=== PATIENT | female | born 1930 | race Caucasian/White ===

== ENCOUNTER 2019-07-11 02:51 | Emergency (ER) | payer OTHER ==
--- OUTSIDE RECORDS SUMMARY | 2019-07-11 02:57 | XMS REPORT ---
:1930 [facility] [address] [place] [address] Care Team Providers Name Role Phone PARKER CALDERÓN JR Primary Care Provider Unavailable PARKER CALDERÓN JR Unavailable Unavailable EDIL BUTCHER Unavailable Unavailable Problems This patient has no known problems. Allergies, Adverse Reactions, Alerts This patient has no known allergies or adverse reactions. Medications This patient has no known medications. Encounters Start End Encounter Admission Attending Care Care Encounter Date/Time Date/Time Type Type Clinicians Facility Department ID 2017-11-10 2017-11-10 [facility] [id number] 17:29:00 17:29:00 PARKER 2017-06-17 2017-06-17 Outpatient [facility] [id number] 08:34:00 08:34:00 2017-03-01 2017-03-01 Emergency [facility] [id number] 01:18:00 01:18:00 2017-01-12 2017-01-12 Outpatient [facility] [id number] 12:21:00 12:21:00 2016-12-13 2016-12-13 Outpatient [facility] [id number] 15:00:00 15:00:00 Results Test Description Test Time Test Comments Text Results Atomic Results Result Comments Morphology 2019-01-24 07:52:28 Test Item Value Reference Range Comments RBC Morph (test code=RBC Morph) As Indicated Normal Anisocyte (test code=Anisocyte) None None Hypochromia (test code=Hypochromia) 1+ None Seen Microcyte (test code=Microcyte) None Seen None Seen Macrocyte (test code=Macrocyte) 1+ None Seen Poik (test code=Poik) None Seen None Seen Polychrom (test code=Polychrom) None Seen None Seen Acanthocyte (test code=Acanthocyte) None Seen None Seen Baso Stippling RBC (test code=Baso Stippling RBC) None Seen None Seen Plt Estimation (test code=Plt Estimation) Decreased Normal Automated [id number] 07:51:11 Test Item Value Reference Range Comments Neutro Auto (test code=Neutro Auto) 62.3 % 36.0-70.0 Lymph Auto (test code=Lymph Auto) 21.6 % 12.0-44.0 [place] Auto (test code=[place] Auto) 9.3 % 0.0-11.0 Eos, Auto (test code=Eos, Auto) 6.0 % 0.0-7.0 Basophil Auto (test code=Basophil Auto) 0.5 % 0.0-2.0 Neutro Absolute (test code=Neutro Absolute) 3.6 x10 1.6-7.4 Lymph Absolute (test code=Lymph Absolute) 1.26 x10 .50-4.60 [place] Absolute (test code=[place] Absolute) .54 x10 .00-1.20 Eos Absolute (test code=Eos Absolute) 0.35 x10 0.00-0.74 Baso Absolute (test code=Baso Absolute) 0.03 x10 0.00-0.21 IG [id number] 07:51:11 Test Item Value Reference Range Comments IG (test code=IG) 0.3 % 0.0-5.0 IG Abs (test code=IG Abs) 0 x10 Complete Blood Count with [id number] 07:51:10 Test Item Value Reference Range Comments WBC (test code=WBC) 5.8 x10 4.4-10.5 RBC (test code=RBC) 2.40 x10 3.75-5.20 Hgb (test code=Hgb) 8.6 g/dL 12.2-14.8 MCV (test code=MCV) 105.80 fL 80.00-100.00 Hct (test code=Hct) 25.4 % 36.5-44.4 MCHC (test code=MCHC) 33.90 g/dL 32.00-37.50 RDW CV (test code=RDW CV) 13.2 % 11.5-14.5 MCH (test code=MCH) 35.8 pg 27.0-32.5 Platelets (test 84.0 x10 140.0-440.0 Critical results called to code=Platelets) joshua canela at 01/24/2019 07:50:39 CDT by fs. Read back and verified? yesno info was givenconsistent with previous MPV (test code=MPV) 11.0 fL Slide Review (test Smear Auto Result created by code=Slide Review) GL_SJM_SLIDE_REV_AUTO GL_SJM_XN_RFLX GL_SJM_XN_RFLX nRBC (test code=nRBC) 0 NRBC Abs (test code=NRBC 0.00 x10 Abs) Pos Morph XN (test A code=Pos Morph XN) Pos Count XN (test A code=Pos Count XN) IPF (test code=IPF) 2 % Basic Metabolic [id number] 07:25:12 Test Item Value Reference Range Comments Sodium Level (test code=Sodium Level) 138.0 mmol/L 135.0-145.0 Potassium Level (test code=Potassium Level) 4.6 mmol/L 3.5-5.1 Chloride Level (test code=Chloride Level) 102 mmol/L 98-105 CO2 (test code=CO2) 27 mmol/L 22-29 Anion Gap (test code=Anion Gap) 9 mmol/L 7-16 BUN (test code=BUN) 34.80 mg/dL 8.00-23.00 Creatinine Level (test code=Creatinine Level) 0.80 mg/dL 0.50-0.90 BUN/Creat Ratio (test code=BUN/Creat Ratio) 44 Glucose Level (test code=Glucose Level) 87 mg/dL 70-115 Calcium Level (test code=Calcium Level) 7.8 mg/dL 8.3-10.5 Basic Metabolic [id number] 07:25:12 Test Item Value Reference Range Comments Sodium Level (test 138.0 mmol/L 135.0-145.0 code=Sodium Level) Potassium Level (test 4.6 mmol/L 3.5-5.1 code=Potassium Level) Chloride Level (test 102 mmol/L 98-105 code=Chloride Level) CO2 (test code=CO2) 27 mmol/L 22-29 Anion Gap (test 9 mmol/L 7-16 code=Anion Gap) BUN (test code=BUN) 34.80 mg/dL 8.00-23.00 Creatinine Level (test 0.80 mg/dL 0.50-0.90 code=Creatinine Level) BUN/Creat Ratio (test 44 code=BUN/Creat Ratio) Glucose Level (test 87 mg/dL 70-115 code=Glucose Level) Calcium Level (test 7.8 mg/dL 8.3-10.5 code=Calcium Level) eGFR AA (test code=eGFR >60 mL/min/1.73 m2 eGFR (estimated AA) Glomerular Filtration Rate) is an estimated value, calculated from the patient's serum creatinine using the MDRD equation. It is NOT the patient's actual GFR. The eGFR provides a more clinically useful measure of kidney disease than serum creatinine alone.This calculation takes sex and race into account, if the information is provided. If the race is not provided, and the patient is -[place] Citizen, multiply by 1.212. If sex is not provided, and the patient is female, multiply by 0.742. Results for patients <18 years of age have not been validated by the MDRD study and should be interpreted with caution. eGFR Result Interpretation:eGFR > or=60 is in the Normal RangeeGFR < 60 may mean kidney diseaseeGFR < 15 may mean kidney failure Ranges recommended by the National Kidney Foundation, http://nkdep.nih.gov Basic Metabolic [id number] 07:25:12 Test Item Value Reference Range Comments Sodium Level (test 138.0 mmol/L 135.0-145.0 code=Sodium Level) Potassium Level (test 4.6 mmol/L 3.5-5.1 code=Potassium Level) Chloride Level (test 102 mmol/L 98-105 code=Chloride Level) CO2 (test code=CO2) 27 mmol/L 22-29 Anion Gap (test 9 mmol/L 7-16 code=Anion Gap) BUN (test code=BUN) 34.80 mg/dL 8.00-23.00 Creatinine Level (test 0.80 mg/dL 0.50-0.90 code=Creatinine Level) BUN/Creat Ratio (test 44 code=BUN/Creat Ratio) Glucose Level (test 87 mg/dL 70-115 code=Glucose Level) Calcium Level (test 7.8 mg/dL 8.3-10.5 code=Calcium Level) eGFR AA (test code=eGFR >60 mL/min/1.73 m2 eGFR (estimated AA) Glomerular Filtration Rate) is an estimated value, calculated from the patient's serum creatinine using the MDRD equation. It is NOT the patient's actual GFR. The eGFR provides a more clinically useful measure of kidney disease than serum creatinine alone.This calculation takes sex and race into account, if the information is provided. If the race is not provided, and the patient is -[place] Citizen, multiply by 1.212. If sex is not provided, and the patient is female, multiply by 0.742. Results for patients <18 years of age have not been validated by the MDRD study and should be interpreted with caution. eGFR Result Interpretation:eGFR > or=60 is in the Normal RangeeGFR < 60 may mean kidney diseaseeGFR < 15 may mean kidney failure Ranges recommended by the National Kidney Foundation, http://nkdep.nih.gov eGFR Non-AA (test >60.00 mL/min/1.73 eGFR (estimated code=eGFR Non-AA) m2 Glomerular Filtration Rate) is an estimated value, calculated from the patient's serum creatinine using the MDRD equation. It is NOT the patient's actual GFR. The eGFR provides a more clinically useful measure of kidney disease than serum creatinine alone.This calculation takes sex and race into account, if the information is provided. If the race is not provided, and the patient is -[place] Citizen, multiply by 1.212. If sex is not provided, and the patient is female, multiply by 0.742. Results for patients <18 years of age have not been validated by the MDRD study and should be interpreted with caution. eGFR Result Interpretation:eGFR > or=60 is in the Normal RangeeGFR < 60 may mean kidney diseaseeGFR < 15 may mean kidney failure Ranges recommended by the National Kidney Foundation, http://nkdep.nih.gov [id number] 09:15:14 Test Item Value Reference Range Comments RBC Morph (test code=RBC Morph) As Indicated Normal Anisocyte (test code=Anisocyte) None None Hypochromia (test code=Hypochromia) 1+ None Seen Microcyte (test code=Microcyte) None Seen None Seen Macrocyte (test code=Macrocyte) None Seen None Seen Poik (test code=Poik) None Seen None Seen Polychrom (test code=Polychrom) None Seen None Seen Acanthocyte (test code=Acanthocyte) None Seen None Seen Baso Stippling RBC (test code=Baso Stippling None Seen None Seen RBC) Plt Estimation (test code=Plt Estimation) Decreased Normal Basic Metabolic [id number] 09:03:30 Test Item Value Reference Range Comments Sodium Level (test code=Sodium Level) 139.0 mmol/L 135.0-145.0 Potassium Level (test code=Potassium Level) 4.8 mmol/L 3.5-5.1 Chloride Level (test code=Chloride Level) 103 mmol/L 98-105 CO2 (test code=CO2) 27 mmol/L 22-29 Anion Gap (test code=Anion Gap) 9 mmol/L 7-16 BUN (test code=BUN) 37.30 mg/dL 8.00-23.00 Creatinine Level (test code=Creatinine Level) 0.90 mg/dL 0.50-0.90 BUN/Creat Ratio (test code=BUN/Creat Ratio) 41 Glucose Level (test code=Glucose Level) 120 mg/dL 70-115 Calcium Level (test code=Calcium Level) 8.0 mg/dL 8.3-10.5 Basic Metabolic [id number] 09:03:30 Test Item Value Reference Range Comments Sodium Level (test 139.0 mmol/L 135.0-145.0 code=Sodium Level) Potassium Level (test 4.8 mmol/L 3.5-5.1 code=Potassium Level) Chloride Level (test 103 mmol/L 98-105 code=Chloride Level) CO2 (test code=CO2) 27 mmol/L 22-29 Anion Gap (test 9 mmol/L 7-16 code=Anion Gap) BUN (test code=BUN) 37.30 mg/dL 8.00-23.00 Creatinine Level (test 0.90 mg/dL 0.50-0.90 code=Creatinine Level) BUN/Creat Ratio (test 41 code=BUN/Creat Ratio) Glucose Level (test 120 mg/dL 70-115 code=Glucose Level) Calcium Level (test 8.0 mg/dL 8.3-10.5 code=Calcium Level) eGFR AA (test code=eGFR >60 mL/min/1.73 m2 eGFR (estimated AA) Glomerular Filtration Rate) is an estimated value, calculated from the patient's serum creatinine using the MDRD equation. It is NOT the patient's actual GFR. The eGFR provides a more clinically useful measure of kidney disease than serum creatinine alone.This calculation takes sex and race into account, if the information is provided. If the race is not provided, and the patient is -[place] Citizen, multiply by 1.212. If sex is not provided, and the patient is female, multiply by 0.742. Results for patients <18 years of age have not been validated by the MDRD study and should be interpreted with caution. eGFR Result Interpretation:eGFR > or=60 is in the Normal RangeeGFR < 60 may mean kidney diseaseeGFR < 15 may mean kidney failure Ranges recommended by the National Kidney Foundation, http://nkdep.nih.gov eGFR Non-AA (test 58.95 mL/min/1.73 eGFR (estimated code=eGFR Non-AA) m2 Glomerular Filtration Rate) is an estimated value, calculated from the patient's serum creatinine using the MDRD equation. It is NOT the patient's actual GFR. The eGFR provides a more clinically useful measure of kidney disease than serum creatinine alone.This calculation takes sex and race into account, if the information is provided. If the race is not provided, and the patient is -[place] Citizen, multiply by 1.212. If sex is not provided, and the patient is female, multiply by 0.742. Results for patients <18 years of age have not been validated by the MDRD study and should be interpreted with caution. eGFR Result Interpretation:eGFR > or=60 is in the Normal RangeeGFR < 60 may mean kidney diseaseeGFR < 15 may mean kidney failure Ranges recommended by the National Kidney Foundation, http://nkdep.nih.gov Basic Metabolic [id number] 09:03:30 Test Item Value Reference Range Comments Sodium Level (test 139.0 mmol/L 135.0-145.0 code=Sodium Level) Potassium Level (test 4.8 mmol/L 3.5-5.1 code=Potassium Level) Chloride Level (test 103 mmol/L 98-105 code=Chloride Level) CO2 (test code=CO2) 27 mmol/L 22-29 Anion Gap (test 9 mmol/L 7-16 code=Anion Gap) BUN (test code=BUN) 37.30 mg/dL 8.00-23.00 Creatinine Level (test 0.90 mg/dL 0.50-0.90 code=Creatinine Level) BUN/Creat Ratio (test 41 code=BUN/Creat Ratio) Glucose Level (test 120 mg/dL 70-115 code=Glucose Level) Calcium Level (test 8.0 mg/dL 8.3-10.5 code=Calcium Level) eGFR AA (test code=eGFR >60 mL/min/1.73 m2 eGFR (estimated AA) Glomerular Filtration Rate) is an estimated value, calculated from the patient's serum creatinine using the MDRD equation. It is NOT the patient's actual GFR. The eGFR provides a more clinically useful measure of kidney disease than serum creatinine alone.This calculation takes sex and race into account, if the information is provided. If the race is not provided, and the patient is -[place] Citizen, multiply by 1.212. If sex is not provided, and the patient is female, multiply by 0.742. Results for patients <18 years of age have not been validated by the MDRD study and should be interpreted with caution. eGFR Result Interpretation:eGFR > or=60 is in the Normal RangeeGFR < 60 may mean kidney diseaseeGFR < 15 may mean kidney failure Ranges recommended by the National Kidney Foundation, http://nkdep.nih.gov eGFR Non-AA (test 58.95 mL/min/1.73 eGFR (estimated code=eGFR Non-AA) m2 Glomerular Filtration Rate) is an estimated value, calculated from the patient's serum creatinine using the MDRD equation. It is NOT the patient's actual GFR. The eGFR provides a more clinically useful measure of kidney disease than serum creatinine alone.This calculation takes sex and race into account, if the information is provided. If the race is not provided, and the patient is -[place] Citizen, multiply by 1.212. If sex is not provided, and the patient is female, multiply by 0.742. Results for patients <18 years of age have not been validated by the MDRD study and should be interpreted with caution. eGFR Result Interpretation:eGFR > or=60 is in the Normal RangeeGFR < 60 may mean kidney diseaseeGFR < 15 may mean kidney failure Ranges recommended by the National Kidney Foundation, http://nkdep.nih.gov Complete Blood Count with [id number] 09:02:03 Test Item Value Reference Range Comments WBC (test code=WBC) 6.8 x10 4.4-10.5 RBC (test code=RBC) 2.39 x10 3.75-5.20 Hgb (test code=Hgb) 8.6 g/dL 12.2-14.8 MCV (test code=MCV) 105.90 fL 80.00-100.00 Hct (test code=Hct) 25.3 % 36.5-44.4 MCHC (test code=MCHC) 34.00 g/dL 32.00-37.50 RDW CV (test code=RDW CV) 13.0 % 11.5-14.5 MCH (test code=MCH) 36.0 pg 27.0-32.5 Platelets (test 93.0 x10 140.0-440.0 Critical results called to code=Platelets) harjitrn at 01/23/2019 09:01:38 CDT by fs. Read back and verified? yesno info was given MPV (test code=MPV) 10.6 fL Slide Review (test code=Slide Smear Auto Result created by Review) GL_SJM_SLIDE_REV_AUTO GL_SJM_XN_RFLX GL_SJM_XN_RFLX nRBC (test code=nRBC) 0 NRBC Abs (test code=NRBC Abs) 0.00 x10 Pos Morph XN (test code=Pos A Morph XN) Pos Count XN (test code=Pos A Count XN) IPF (test code=IPF) 2 % Automated [id number] 09:02:03 Test Item Value Reference Range Comments Neutro Auto (test code=Neutro Auto) 71.4 % 36.0-70.0 Lymph Auto (test code=Lymph Auto) 16.9 % 12.0-44.0 [place] Auto (test code=[place] Auto) 6.3 % 0.0-11.0 Eos, Auto (test code=Eos, Auto) 4.6 % 0.0-7.0 Basophil Auto (test code=Basophil Auto) 0.4 % 0.0-2.0 Neutro Absolute (test code=Neutro Absolute) 4.9 x10 1.6-7.4 Lymph Absolute (test code=Lymph Absolute) 1.15 x10 .50-4.60 [place] Absolute (test code=[place] Absolute) .43 x10 .00-1.20 Eos Absolute (test code=Eos Absolute) 0.31 x10 0.00-0.74 Baso Absolute (test code=Baso Absolute) 0.03 x10 0.00-0.21 IG [id number] 09:02:03 Test Item Value Reference Range Comments IG (test code=IG) 0.4 % 0.0-5.0 IG Abs (test code=IG Abs) 0 x10 Urine [id number] 08:07:13 C Urine Added by GL_SJM_UA_CUL_INDNo growth at 24 hours. No growth at 48 hours.[id number] 07:49:13 Test Item Value Reference Range Comments RBC Morph (test code=RBC Morph) As Indicated Normal Anisocyte (test code=Anisocyte) None None Hypochromia (test code=Hypochromia) 1+ None Seen Microcyte (test code=Microcyte) None Seen None Seen Macrocyte (test code=Macrocyte) None Seen None Seen Poik (test code=Poik) None Seen None Seen Polychrom (test code=Polychrom) None Seen None Seen Acanthocyte (test code=Acanthocyte) None Seen None Seen Baso Stippling RBC (test code=Baso Stippling None Seen None Seen RBC) Plt Estimation (test code=Plt Estimation) Normal Normal Automated [id number] 07:10:40 Test Item Value Reference Range Comments Neutro Auto (test code=Neutro Auto) 66.0 % 36.0-70.0 Lymph Auto (test code=Lymph Auto) 20.1 % 12.0-44.0 [place] Auto (test code=[place] Auto) 8.5 % 0.0-11.0 Eos, Auto (test code=Eos, Auto) 4.6 % 0.0-7.0 Basophil Auto (test code=Basophil Auto) 0.5 % 0.0-2.0 Neutro Absolute (test code=Neutro Absolute) 5.7 x10 1.6-7.4 Lymph Absolute (test code=Lymph Absolute) 1.74 x10 .50-4.60 [place] Absolute (test code=[place] Absolute) .74 x10 .00-1.20 Eos Absolute (test code=Eos Absolute) 0.40 x10 0.00-0.74 Baso Absolute (test code=Baso Absolute) 0.04 x10 0.00-0.21 IG [id number] 07:10:40 Test Item Value Reference Range Comments IG (test code=IG) 0.3 % 0.0-5.0 IG Abs (test code=IG Abs) 0 x10 Complete Blood Count with [id number] 07:10:39 Test Item Value Reference Range Comments WBC (test code=WBC) 8.7 x10 4.4-10.5 RBC (test code=RBC) 2.57 x10 3.75-5.20 Hgb (test code=Hgb) 9.0 g/dL 12.2-14.8 MCV (test code=MCV) 105.10 fL 80.00-100.00 Hct (test code=Hct) 27.0 % 36.5-44.4 MCHC (test code=MCHC) 33.30 g/dL 32.00-37.50 RDW CV (test code=RDW CV) 13.3 % 11.5-14.5 MCH (test code=MCH) 35.0 pg 27.0-32.5 Platelets (test 112.0 x10 140.0-440.0 code=Platelets) MPV (test code=MPV) 10.3 fL Slide Review (test code=Slide Smear Auto Result created by Review) GL_SJM_SLIDE_REV_AUTO GL_SJM_XN_RFLX nRBC (test code=nRBC) 0 NRBC Abs (test code=NRBC Abs) 0.00 x10 Pos Morph XN (test code=Pos A Morph XN) IPF (test code=IPF) 0 % Basic Metabolic [id number] 07:00:58 Test Item Value Reference Range Comments Sodium Level (test code=Sodium Level) 137.0 mmol/L 135.0-145.0 Potassium Level (test code=Potassium Level) 4.1 mmol/L 3.5-5.1 Chloride Level (test code=Chloride Level) 102 mmol/L 98-105 CO2 (test code=CO2) 26 mmol/L 22-29 Anion Gap (test code=Anion Gap) 9 mmol/L 7-16 BUN (test code=BUN) 36.00 mg/dL 8.00-23.00 Creatinine Level (test code=Creatinine Level) 0.80 mg/dL 0.50-0.90 BUN/Creat Ratio (test code=BUN/Creat Ratio) 45 Glucose Level (test code=Glucose Level) 93 mg/dL 70-115 Calcium Level (test code=Calcium Level) 8.0 mg/dL 8.3-10.5 Basic Metabolic [id number] 07:00:58 Test Item Value Reference Range Comments Sodium Level (test 137.0 mmol/L 135.0-145.0 code=Sodium Level) Potassium Level (test 4.1 mmol/L 3.5-5.1 code=Potassium Level) Chloride Level (test 102 mmol/L 98-105 code=Chloride Level) CO2 (test code=CO2) 26 mmol/L 22-29 Anion Gap (test 9 mmol/L 7-16 code=Anion Gap) BUN (test code=BUN) 36.00 mg/dL 8.00-23.00 Creatinine Level (test 0.80 mg/dL 0.50-0.90 code=Creatinine Level) BUN/Creat Ratio (test 45 code=BUN/Creat Ratio) Glucose Level (test 93 mg/dL 70-115 code=Glucose Level) Calcium Level (test 8.0 mg/dL 8.3-10.5 code=Calcium Level) eGFR AA (test code=eGFR >60 mL/min/1.73 m2 eGFR (estimated AA) Glomerular Filtration Rate) is an estimated value, calculated from the patient's serum creatinine using the MDRD equation. It is NOT the patient's actual GFR. The eGFR provides a more clinically useful measure of kidney disease than serum creatinine alone.This calculation takes sex and race into account, if the information is provided. If the race is not provided, and the patient is -[place] Citizen, multiply by 1.212. If sex is not provided, and the patient is female, multiply by 0.742. Results for patients <18 years of age have not been validated by the MDRD study and should be interpreted with caution. eGFR Result Interpretation:eGFR > or=60 is in the Normal RangeeGFR < 60 may mean kidney diseaseeGFR < 15 may mean kidney failure Ranges recommended by the National Kidney Foundation, http://nkdep.nih.gov Basic Metabolic [id number] 07:00:58 Test Item Value Reference Range Comments Sodium Level (test 137.0 mmol/L 135.0-145.0 code=Sodium Level) Potassium Level (test 4.1 mmol/L 3.5-5.1 code=Potassium Level) Chloride Level (test 102 mmol/L 98-105 code=Chloride Level) CO2 (test code=CO2) 26 mmol/L 22-29 Anion Gap (test 9 mmol/L 7-16 code=Anion Gap) BUN (test code=BUN) 36.00 mg/dL 8.00-23.00 Creatinine Level (test 0.80 mg/dL 0.50-0.90 code=Creatinine Level) BUN/Creat Ratio (test 45 code=BUN/Creat Ratio) Glucose Level (test 93 mg/dL 70-115 code=Glucose Level) Calcium Level (test 8.0 mg/dL 8.3-10.5 code=Calcium Level) eGFR AA (test code=eGFR >60 mL/min/1.73 m2 eGFR (estimated AA) Glomerular Filtration Rate) is an estimated value, calculated from the patient's serum creatinine using the MDRD equation. It is NOT the patient's actual GFR. The eGFR provides a more clinically useful measure of kidney disease than serum creatinine alone.This calculation takes sex and race into account, if the information is provided. If the race is not provided, and the patient is -[place] Citizen, multiply by 1.212. If sex is not provided, and the patient is female, multiply by 0.742. Results for patients <18 years of age have not been validated by the MDRD study and should be interpreted with caution. eGFR Result Interpretation:eGFR > or=60 is in the Normal RangeeGFR < 60 may mean kidney diseaseeGFR < 15 may mean kidney failure Ranges recommended by the National Kidney Foundation, http://nkdep.nih.gov eGFR Non-AA (test >60.00 mL/min/1.73 eGFR (estimated code=eGFR Non-AA) m2 Glomerular Filtration Rate) is an estimated value, calculated from the patient's serum creatinine using the MDRD equation. It is NOT the patient's actual GFR. The eGFR provides a more clinically useful measure of kidney disease than serum creatinine alone.This calculation takes sex and race into account, if the information is provided. If the race is not provided, and the patient is -[place] Citizen, multiply by 1.212. If sex is not provided, and the patient is female, multiply by 0.742. Results for patients <18 years of age have not been validated by the MDRD study and should be interpreted with caution. eGFR Result Interpretation:eGFR > or=60 is in the Normal RangeeGFR < 60 may mean kidney diseaseeGFR < 15 may mean kidney failure Ranges recommended by the National Kidney Foundation, http://nkdep.nih.gov Urinalysis [id number] 01:08:58 Test Item Value Reference Range Comments UA WBC (test code=UA WBC) 11-19 0-5 UA RBC (test code=UA RBC) 30-50 0-5 UA Bacteria (test code=UA Bacteria) Moderate UA Squam Epithelial (test code=UA Squam Epithelial) 6-10 Urinalysis with Culture, if [id number] 00:50:50 Test Item Value Reference Range Comments UA Color (test code=UA Color) RED Yellow UA Appear (test code=UA CLDY Clear Appear) UA pH (test code=UA pH) 6.5 UA Spec Grav (test code=UA 1.016 1.001-1.035 Spec Grav) UA Glucose (test code=UA NEG Negative Glucose) UA Bili (test code=UA Bili) NEG Negative UA Ketones (test code=UA 15 mg/dL Negative Ketones) UA Blood (test code=UA Blood) 250 cells/mcL Negative UA Protein (test code=UA 500 mg/dL Negative Protein) UA Urobilinogen (test code=UA 0.2 mg/dL Urobilinogen) UA Nitrite (test code=UA NEG Negative Nitrite) UA Leuk Est (test code=UA Leuk 100 cells/mcL Negative Est) UA Micro Ind? (test code=UA Indicated Not Indicated Result created by rule Micro Ind?) GL_SJM_UA_MICRO_IND CT Brain/Head w/o [id number] 11:16:18Patient: ELISABETH CONDON Date/Time01/18/2019 10:55 CDTReason for ExamAtrophy, brainReportCT head without contrast 01/18/2019 11:14 AMCLINICAL HISTORY: Brain atrophyTECHNIQUE: Axial noncontrast CT images through the head were obtained. This examination was performed according to our departmental dose optimization program, which includes automatedexposure control , adjustment of the mA and/or kV according to patient size, and/or use of iterative reconstruction technique.COMPARISON: 03/01/2017LOCATION: [id number]: There is no hemorrhage, extra-axial collection, mass, hydrocephalus, or midline shift. There is moderately advanced microvascular ischemia in the supratentorial white matter, deep polanco nuclei, and patsy. There is atherosclerotic calcification of the intracranial arterial vasculature. There is generalized parenchymal volume loss.The visualized paranasal sinuses and mastoid air cells are well aerated. The skull is intact.IMPRESSION:No intracranial hemorrhage or mass effect.Chronic appearing microvascular and involutional changes.If concern for acute pathology persists, further evaluation with MRI is recommended. Final Dictated by: MD Patton Timothy JDictated DT/TM: 01/18/2019 11:14 amSigned by: MD Patton Timothy JSigned (Electronic Signature): 01/18/2019 11:16 amXR Abdomen KUB 1 [id number] 10:11:59Patient: ELISABETH CONDON Date/Time01/18/2019 10:00 CDTReason for ExamAbdominal distentionReportAbdomen one view supine 01/18/2019 10:11 AMCLINICAL INDICATION: DistentionCOMPARISON: None availableLOCATION: [id number]:There is no radiographic evidence of bowel obstruction. There is no remarkable ileus. 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 Final Dictated by: MD Patton Timothy JDictated DT/TM: 10:11 amSigned by: MD Patton Timothy JSigned (Electronic Signature): 01/18/2019 10:11 amBasic Metabolic [id number] 09:01:10 Test Item Value Reference Range Comments Sodium Level (test code=Sodium Level) 136.0 mmol/L 135.0-145.0 Potassium Level (test code=Potassium Level) 3.9 mmol/L 3.5-5.1 Chloride Level (test code=Chloride Level) 103 mmol/L 98-105 CO2 (test code=CO2) 23 mmol/L 22-29 Anion Gap (test code=Anion Gap) 10 mmol/L 7-16 BUN (test code=BUN) 36.10 mg/dL 8.00-23.00 Creatinine Level (test code=Creatinine Level) 0.90 mg/dL 0.50-0.90 BUN/Creat Ratio (test code=BUN/Creat Ratio) 40 Glucose Level (test code=Glucose Level) 105 mg/dL 70-115 Calcium Level (test code=Calcium Level) 8.1 mg/dL 8.3-10.5 Basic Metabolic [id number] 09:01:10 Test Item Value Reference Range Comments Sodium Level (test 136.0 mmol/L 135.0-145.0 code=Sodium Level) Potassium Level (test 3.9 mmol/L 3.5-5.1 code=Potassium Level) Chloride Level (test 103 mmol/L 98-105 code=Chloride Level) CO2 (test code=CO2) 23 mmol/L 22-29 Anion Gap (test 10 mmol/L 7-16 code=Anion Gap) BUN (test code=BUN) 36.10 mg/dL 8.00-23.00 Creatinine Level (test 0.90 mg/dL 0.50-0.90 code=Creatinine Level) BUN/Creat Ratio (test 40 code=BUN/Creat Ratio) Glucose Level (test 105 mg/dL 70-115 code=Glucose Level) Calcium Level (test 8.1 mg/dL 8.3-10.5 code=Calcium Level) eGFR AA (test code=eGFR >60 mL/min/1.73 m2 eGFR (estimated AA) Glomerular Filtration Rate) is an estimated value, calculated from the patient's serum creatinine using the MDRD equation. It is NOT the patient's actual GFR. The eGFR provides a more clinically useful measure of kidney disease than serum creatinine alone.This calculation takes sex and race into account, if the information is provided. If the race is not provided, and the patient is -[place] Citizen, multiply by 1.212. If sex is not provided, and the patient is female, multiply by 0.742. Results for patients <18 years of age have not been validated by the MDRD study and should be interpreted with caution. eGFR Result Interpretation:eGFR > or=60 is in the Normal RangeeGFR < 60 may mean kidney diseaseeGFR < 15 may mean kidney failure Ranges recommended by the National Kidney Foundation, http://nkdep.nih.gov Basic Metabolic [id number] 09:01:10 Test Item Value Reference Range Comments Sodium Level (test 136.0 mmol/L 135.0-145.0 code=Sodium Level) Potassium Level (test 3.9 mmol/L 3.5-5.1 code=Potassium Level) Chloride Level (test 103 mmol/L 98-105 code=Chloride Level) CO2 (test code=CO2) 23 mmol/L 22-29 Anion Gap (test 10 mmol/L 7-16 code=Anion Gap) BUN (test code=BUN) 36.10 mg/dL 8.00-23.00 Creatinine Level (test 0.90 mg/dL 0.50-0.90 code=Creatinine Level) BUN/Creat Ratio (test 40 code=BUN/Creat Ratio) Glucose Level (test 105 mg/dL 70-115 code=Glucose Level) Calcium Level (test 8.1 mg/dL 8.3-10.5 code=Calcium Level) eGFR AA (test code=eGFR >60 mL/min/1.73 m2 eGFR (estimated AA) Glomerular Filtration Rate) is an estimated value, calculated from the patient's serum creatinine using the MDRD equation. It is NOT the patient's actual GFR. The eGFR provides a more clinically useful measure of kidney disease than serum creatinine alone.This calculation takes sex and race into account, if the information is provided. If the race is not provided, and the patient is -[place] Citizen, multiply by 1.212. If sex is not provided, and the patient is female, multiply by 0.742. Results for patients <18 years of age have not been validated by the MDRD study and should be interpreted with caution. eGFR Result Interpretation:eGFR > or=60 is in the Normal RangeeGFR < 60 may mean kidney diseaseeGFR < 15 may mean kidney failure Ranges recommended by the National Kidney Foundation, http://nkdep.nih.gov eGFR Non-AA (test 58.95 mL/min/1.73 eGFR (estimated code=eGFR Non-AA) m2 Glomerular Filtration Rate) is an estimated value, calculated from the patient's serum creatinine using the MDRD equation. It is NOT the patient's actual GFR. The eGFR provides a more clinically useful measure of kidney disease than serum creatinine alone.This calculation takes sex and race into account, if the information is provided. If the race is not provided, and the patient is -[place] Citizen, multiply by 1.212. If sex is not provided, and the patient is female, multiply by 0.742. Results for patients <18 years of age have not been validated by the MDRD study and should be interpreted with caution. eGFR Result Interpretation:eGFR > or=60 is in the Normal RangeeGFR < 60 may mean kidney diseaseeGFR < 15 may mean kidney failure Ranges recommended by the National Kidney Foundation, http://nkdep.nih.gov Complete Blood Count with [id number] 08:54:54 Test Item Value Reference Range Comments WBC (test code=WBC) 8.9 x10 4.4-10.5 RBC (test code=RBC) 2.83 x10 3.75-5.20 Hgb (test code=Hgb) 10.1 g/dL 12.2-14.8 MCV (test code=MCV) 103.20 fL 80.00-100.00 Hct (test code=Hct) 29.2 % 36.5-44.4 MCHC (test code=MCHC) 34.60 g/dL 32.00-37.50 MCH (test code=MCH) 35.7 pg 27.0-32.5 RDW CV (test code=RDW CV) 13.3 % 11.5-14.5 Platelets (test 120.0 x10 140.0-440.0 code=Platelets) MPV (test code=MPV) 10.2 fL Slide Review (test code=Slide Auto Auto Result created by Review) GL_SJM_SLIDE_REV_AUTO nRBC (test code=nRBC) 0 NRBC Abs (test code=NRBC Abs) 0.00 x10 IPF (test code=IPF) 0 % Automated [id number] 08:54:54 Test Item Value Reference Range Comments Neutro Auto (test code=Neutro Auto) 76.1 % 36.0-70.0 Lymph Auto (test code=Lymph Auto) 14.4 % 12.0-44.0 [place] Auto (test code=[place] Auto) 6.3 % 0.0-11.0 Eos, Auto (test code=Eos, Auto) 2.7 % 0.0-7.0 Basophil Auto (test code=Basophil Auto) 0.2 % 0.0-2.0 Neutro Absolute (test code=Neutro Absolute) 6.8 x10 1.6-7.4 Lymph Absolute (test code=Lymph Absolute) 1.28 x10 .50-4.60 [place] Absolute (test code=[place] Absolute) .56 x10 .00-1.20 Eos Absolute (test code=Eos Absolute) 0.24 x10 0.00-0.74 Baso Absolute (test code=Baso Absolute) 0.02 x10 0.00-0.21 IG [id number] 08:54:54 Test Item Value Reference Range Comments IG (test code=IG) 0.3 % 0.0-5.0 IG Abs (test code=IG Abs) 0 x10 Basic Metabolic [id number] 11:07:49 Test Item Value Reference Range Comments Sodium Level (test code=Sodium Level) 132.0 mmol/L 135.0-145.0 Potassium Level (test code=Potassium Level) 3.7 mmol/L 3.5-5.1 Chloride Level (test code=Chloride Level) 98 mmol/L 98-105 CO2 (test code=CO2) 24 mmol/L 22-29 Anion Gap (test code=Anion Gap) 10 mmol/L 7-16 BUN (test code=BUN) 34.90 mg/dL 8.00-23.00 Creatinine Level (test code=Creatinine Level) 1.00 mg/dL 0.50-0.90 BUN/Creat Ratio (test code=BUN/Creat Ratio) 35 Glucose Level (test code=Glucose Level) 118 mg/dL 70-115 Calcium Level (test code=Calcium Level) 7.6 mg/dL 8.3-10.5 Basic Metabolic [id number] 11:07:49 Test Item Value Reference Range Comments Sodium Level (test 132.0 mmol/L 135.0-145.0 code=Sodium Level) Potassium Level (test 3.7 mmol/L 3.5-5.1 code=Potassium Level) Chloride Level (test 98 mmol/L 98-105 code=Chloride Level) CO2 (test code=CO2) 24 mmol/L 22-29 Anion Gap (test 10 mmol/L 7-16 code=Anion Gap) BUN (test code=BUN) 34.90 mg/dL 8.00-23.00 Creatinine Level (test 1.00 mg/dL 0.50-0.90 code=Creatinine Level) BUN/Creat Ratio (test 35 code=BUN/Creat Ratio) Glucose Level (test 118 mg/dL 70-115 code=Glucose Level) Calcium Level (test 7.6 mg/dL 8.3-10.5 code=Calcium Level) eGFR AA (test code=eGFR >60 mL/min/1.73 m2 eGFR (estimated AA) Glomerular Filtration Rate) is an estimated value, calculated from the patient's serum creatinine using the MDRD equation. It is NOT the patient's actual GFR. The eGFR provides a more clinically useful measure of kidney disease than serum creatinine alone.This calculation takes sex and race into account, if the information is provided. If the race is not provided, and the patient is -[place] Citizen, multiply by 1.212. If sex is not provided, and the patient is female, multiply by 0.742. Results for patients <18 years of age have not been validated by the MDRD study and should be interpreted with caution. eGFR Result Interpretation:eGFR > or=60 is in the Normal RangeeGFR < 60 may mean kidney diseaseeGFR < 15 may mean kidney failure Ranges recommended by the National Kidney Foundation, http://nkdep.nih.gov Basic Metabolic [id number] 11:07:49 Test Item Value Reference Range Comments Sodium Level (test 132.0 mmol/L 135.0-145.0 code=Sodium Level) Potassium Level (test 3.7 mmol/L 3.5-5.1 code=Potassium Level) Chloride Level (test 98 mmol/L 98-105 code=Chloride Level) CO2 (test code=CO2) 24 mmol/L 22-29 Anion Gap (test 10 mmol/L 7-16 code=Anion Gap) BUN (test code=BUN) 34.90 mg/dL 8.00-23.00 Creatinine Level (test 1.00 mg/dL 0.50-0.90 code=Creatinine Level) BUN/Creat Ratio (test 35 code=BUN/Creat Ratio) Glucose Level (test 118 mg/dL 70-115 code=Glucose Level) Calcium Level (test 7.6 mg/dL 8.3-10.5 code=Calcium Level) eGFR AA (test code=eGFR >60 mL/min/1.73 m2 eGFR (estimated AA) Glomerular Filtration Rate) is an estimated value, calculated from the patient's serum creatinine using the MDRD equation. It is NOT the patient's actual GFR. The eGFR provides a more clinically useful measure of kidney disease than serum creatinine alone.This calculation takes sex and race into account, if the information is provided. If the race is not provided, and the patient is -[place] Citizen, multiply by 1.212. If sex is not provided, and the patient is female, multiply by 0.742. Results for patients <18 years of age have not been validated by the MDRD study and should be interpreted with caution. eGFR Result Interpretation:eGFR > or=60 is in the Normal RangeeGFR < 60 may mean kidney diseaseeGFR < 15 may mean kidney failure Ranges recommended by the National Kidney Foundation, http://nkdep.nih.gov eGFR Non-AA (test 52.21 mL/min/1.73 eGFR (estimated code=eGFR Non-AA) m2 Glomerular Filtration Rate) is an estimated value, calculated from the patient's serum creatinine using the MDRD equation. It is NOT the patient's actual GFR. The eGFR provides a more clinically useful measure of kidney disease than serum creatinine alone.This calculation takes sex and race into account, if the information is provided. If the race is not provided, and the patient is -[place] Citizen, multiply by 1.212. If sex is not provided, and the patient is female, multiply by 0.742. Results for patients <18 years of age have not been validated by the MDRD study and should be interpreted with caution. eGFR Result Interpretation:eGFR > or=60 is in the Normal RangeeGFR < 60 may mean kidney diseaseeGFR < 15 may mean kidney failure Ranges recommended by the National Kidney Foundation, http://nkdep.nih.gov Basic Metabolic [id number] 11:35:00 Test Item Value Reference Range Comments Sodium Level (test code=Sodium Level) 130.0 mmol/L 135.0-145.0 Potassium Level (test code=Potassium Level) 4.0 mmol/L 3.5-5.1 Chloride Level (test code=Chloride Level) 94 mmol/L 98-105 CO2 (test code=CO2) 22 mmol/L 22-29 Anion Gap (test code=Anion Gap) 14 mmol/L 7-16 BUN (test code=BUN) 37.20 mg/dL 8.00-23.00 Creatinine Level (test code=Creatinine Level) 1.00 mg/dL 0.50-0.90 BUN/Creat Ratio (test code=BUN/Creat Ratio) 37 Glucose Level (test code=Glucose Level) 103 mg/dL 70-115 Calcium Level (test code=Calcium Level) 8.1 mg/dL 8.3-10.5 Basic Metabolic [id number] 11:35:00 Test Item Value Reference Range Comments Sodium Level (test 130.0 mmol/L 135.0-145.0 code=Sodium Level) Potassium Level (test 4.0 mmol/L 3.5-5.1 code=Potassium Level) Chloride Level (test 94 mmol/L 98-105 code=Chloride Level) CO2 (test code=CO2) 22 mmol/L 22-29 Anion Gap (test 14 mmol/L -16 code=Anion Gap) BUN (test code=BUN) 37.20 mg/dL 8.00-23.00 Creatinine Level (test 1.00 mg/dL 0.50-0.90 code=Creatinine Level) BUN/Creat Ratio (test 37 code=BUN/Creat Ratio) Glucose Level (test 103 mg/dL 70-115 code=Glucose Level) Calcium Level (test 8.1 mg/dL 8.3-10.5 code=Calcium Level) eGFR AA (test code=eGFR >60 mL/min/1.73 m2 eGFR (estimated AA) Glomerular Filtration Rate) is an estimated value, calculated from the patient's serum creatinine using the MDRD equation. It is NOT the patient's actual GFR. The eGFR provides a more clinically useful measure of kidney disease than serum creatinine alone.This calculation takes sex and race into account, if the information is provided. If the race is not provided, and the patient is -[place] Citizen, multiply by 1.212. If sex is not provided, and the patient is female, multiply by 0.742. Results for patients <18 years of age have not been validated by the MDRD study and should be interpreted with caution. eGFR Result Interpretation:eGFR > or=60 is in the Normal RangeeGFR < 60 may mean kidney diseaseeGFR < 15 may mean kidney failure Ranges recommended by the National Kidney Foundation, http://nkdep.nih.gov Basic Metabolic [id number] 11:35:00 Test Item Value Reference Range Comments Sodium Level (test 130.0 mmol/L 135.0-145.0 code=Sodium Level) Potassium Level (test 4.0 mmol/L 3.5-5.1 code=Potassium Level) Chloride Level (test 94 mmol/L 98-105 code=Chloride Level) CO2 (test code=CO2) 22 mmol/L 22-29 Anion Gap (test 14 mmol/L 7-16 code=Anion Gap) BUN (test code=BUN) 37.20 mg/dL 8.00-23.00 Creatinine Level (test 1.00 mg/dL 0.50-0.90 code=Creatinine Level) BUN/Creat Ratio (test 37 code=BUN/Creat Ratio) Glucose Level (test 103 mg/dL 70-115 code=Glucose Level) Calcium Level (test 8.1 mg/dL 8.3-10.5 code=Calcium Level) eGFR AA (test code=eGFR >60 mL/min/1.73 m2 eGFR (estimated AA) Glomerular Filtration Rate) is an estimated value, calculated from the patient's serum creatinine using the MDRD equation. It is NOT the patient's actual GFR. The eGFR provides a more clinically useful measure of kidney disease than serum creatinine alone.This calculation takes sex and race into account, if the information is provided. If the race is not provided, and the patient is -[place] Citizen, multiply by 1.212. If sex is not provided, and the patient is female, multiply by 0.742. Results for patients <18 years of age have not been validated by the MDRD study and should be interpreted with caution. eGFR Result Interpretation:eGFR > or=60 is in the Normal RangeeGFR < 60 may mean kidney diseaseeGFR < 15 may mean kidney failure Ranges recommended by the National Kidney Foundation, http://nkdep.nih.gov eGFR Non-AA (test 52.21 mL/min/1.73 eGFR (estimated code=eGFR Non-AA) m2 Glomerular Filtration Rate) is an estimated value, calculated from the patient's serum creatinine using the MDRD equation. It is NOT the patient's actual GFR. The eGFR provides a more clinically useful measure of kidney disease than serum creatinine alone.This calculation takes sex and race into account, if the information is provided. If the race is not provided, and the patient is -[place] Citizen, multiply by 1.212. If sex is not provided, and the patient is female, multiply by 0.742. Results for patients <18 years of age have not been validated by the MDRD study and should be interpreted with caution. eGFR Result Interpretation:eGFR > or=60 is in the Normal RangeeGFR < 60 may mean kidney diseaseeGFR < 15 may mean kidney failure Ranges recommended by the National Kidney Foundation, http://nkdep.nih.gov Complete Blood Count with [id number] 10:55:57 Test Item Value Reference Range Comments WBC (test code=WBC) 8.1 x10 4.4-10.5 RBC (test code=RBC) 2.90 x10 3.75-5.20 Hgb (test code=Hgb) 10.3 g/dL 12.2-14.8 MCV (test code=MCV) 103.80 fL 80.00-100.00 Hct (test code=Hct) 30.1 % 36.5-44.4 MCHC (test code=MCHC) 34.20 g/dL 32.00-37.50 RDW CV (test code=RDW CV) 13.2 % 11.5-14.5 MCH (test code=MCH) 35.5 pg 27.0-32.5 Platelets (test 123.0 x10 140.0-440.0 code=Platelets) MPV (test code=MPV) 10.3 fL Slide Review (test code=Slide Auto Auto Result created by Review) GL_SJM_SLIDE_REV_AUTO nRBC (test code=nRBC) 0 NRBC Abs (test code=NRBC Abs) 0.00 x10 IPF (test code=IPF) 0 % Automated [id number] 10:55:57 Test Item Value Reference Range Comments Neutro Auto (test code=Neutro Auto) 68.3 % 36.0-70.0 Lymph Auto (test code=Lymph Auto) 16.9 % 12.0-44.0 [place] Auto (test code=[place] Auto) 12.0 % 0.0-11.0 Eos, Auto (test code=Eos, Auto) 2.2 % 0.0-7.0 Basophil Auto (test code=Basophil Auto) 0.1 % 0.0-2.0 Neutro Absolute (test code=Neutro Absolute) 5.5 x10 1.6-7.4 Lymph Absolute (test code=Lymph Absolute) 1.37 x10 .50-4.60 [place] Absolute (test code=[place] Absolute) .97 x10 .00-1.20 Eos Absolute (test code=Eos Absolute) 0.18 x10 0.00-0.74 Baso Absolute (test code=Baso Absolute) 0.01 x10 0.00-0.21 IG [id number] 10:55:57 Test Item Value Reference Range Comments IG (test code=IG) 0.5 % 0.0-5.0 IG Abs (test code=IG Abs) 0 x10 Basic Metabolic [id number] 17:04:01 Test Item Value Reference Range Comments Sodium Level (test 128.0 mmol/L 135.0-145.0 code=Sodium Level) Potassium Level (test 4.4 mmol/L 3.5-5.1 code=Potassium Level) Chloride Level (test 92 mmol/L 98-105 code=Chloride Level) CO2 (test code=CO2) 24 mmol/L 22-29 Anion Gap (test 12 mmol/L 7-16 code=Anion Gap) BUN (test code=BUN) 43.10 mg/dL 8.00-23.00 Creatinine Level (test 1.20 mg/dL 0.50-0.90 code=Creatinine Level) BUN/Creat Ratio (test 36 code=BUN/Creat Ratio) Glucose Level (test 90 mg/dL 70-115 code=Glucose Level) Calcium Level (test 8.2 mg/dL 8.3-10.5 code=Calcium Level) eGFR AA (test code=eGFR 51 mL/min/1.73 m2 eGFR (estimated Glomerular AA) Filtration Rate) is an estimated value, calculated from the patient's serum creatinine using the MDRD equation. It is NOT the patient's actual GFR. The eGFR provides a more clinically useful measure of kidney disease than serum creatinine alone.This calculation takes sex and race into account, if the information is provided. If the race is not provided, and the patient is -[place] Citizen, multiply by 1.212. If sex is not provided, and the patient is female, multiply by 0.742. Results for patients <18 years of age have not been validated by the MDRD study and should be interpreted with caution. eGFR Result Interpretation:eGFR > or=60 is in the Normal RangeeGFR < 60 may mean kidney diseaseeGFR < 15 may mean kidney failure Ranges recommended by the National Kidney Foundation, http://nkdep.nih.gov Basic Metabolic [id number] 17:04:01 Test Item Value Reference Range Comments Sodium Level (test 128.0 mmol/L 135.0-145.0 code=Sodium Level) Potassium Level (test 4.4 mmol/L 3.5-5.1 code=Potassium Level) Chloride Level (test 92 mmol/L 98-105 code=Chloride Level) CO2 (test code=CO2) 24 mmol/L 22-29 Anion Gap (test 12 mmol/L 7-16 code=Anion Gap) BUN (test code=BUN) 43.10 mg/dL 8.00-23.00 Creatinine Level (test 1.20 mg/dL 0.50-0.90 code=Creatinine Level) BUN/Creat Ratio (test 36 code=BUN/Creat Ratio) Glucose Level (test 90 mg/dL 70-115 code=Glucose Level) Calcium Level (test 8.2 mg/dL 8.3-10.5 code=Calcium Level) eGFR AA (test code=eGFR 51 mL/min/1.73 m2 eGFR (estimated AA) Glomerular Filtration Rate) is an estimated value, calculated from the patient's serum creatinine using the MDRD equation. It is NOT the patient's actual GFR. The eGFR provides a more clinically useful measure of kidney disease than serum creatinine alone.This calculation takes sex and race into account, if the information is provided. If the race is not provided, and the patient is -[place] Citizen, multiply by 1.212. If sex is not provided, and the patient is female, multiply by 0.742. Results for patients <18 years of age have not been validated by the MDRD study and should be interpreted with caution. eGFR Result Interpretation:eGFR > or=60 is in the Normal RangeeGFR < 60 may mean kidney diseaseeGFR < 15 may mean kidney failure Ranges recommended by the National Kidney Foundation, http://nkdep.nih.gov eGFR Non-AA (test 42.30 mL/min/1.73 eGFR (estimated code=eGFR Non-AA) m2 Glomerular Filtration Rate) is an estimated value, calculated from the patient's serum creatinine using the MDRD equation. It is NOT the patient's actual GFR. The eGFR provides a more clinically useful measure of kidney disease than serum creatinine alone.This calculation takes sex and race into account, if the information is provided. If the race is not provided, and the patient is -[place] Citizen, multiply by 1.212. If sex is not provided, and the patient is female, multiply by 0.742. Results for patients <18 years of age have not been validated by the MDRD study and should be interpreted with caution. eGFR Result Interpretation:eGFR > or=60 is in the Normal RangeeGFR < 60 may mean kidney diseaseeGFR < 15 may mean kidney failure Ranges recommended by the National Kidney Foundation, http://nkdep.nih.gov Basic Metabolic [id number] 17:04:01 Test Item Value Reference Range Comments Sodium Level (test 128.0 mmol/L 135.0-145.0 code=Sodium Level) Potassium Level (test 4.4 mmol/L 3.5-5.1 code=Potassium Level) Chloride Level (test 92 mmol/L 98-105 code=Chloride Level) CO2 (test code=CO2) 24 mmol/L 22-29 Anion Gap (test 12 mmol/L 7-16 code=Anion Gap) BUN (test code=BUN) 43.10 mg/dL 8.00-23.00 Creatinine Level (test 1.20 mg/dL 0.50-0.90 code=Creatinine Level) BUN/Creat Ratio (test 36 code=BUN/Creat Ratio) Glucose Level (test 90 mg/dL 70-115 code=Glucose Level) Calcium Level (test 8.2 mg/dL 8.3-10.5 code=Calcium Level) eGFR AA (test code=eGFR 51 mL/min/1.73 m2 eGFR (estimated AA) Glomerular Filtration Rate) is an estimated value, calculated from the patient's serum creatinine using the MDRD equation. It is NOT the patient's actual GFR. The eGFR provides a more clinically useful measure of kidney disease than serum creatinine alone.This calculation takes sex and race into account, if the information is provided. If the race is not provided, and the patient is -[place] Citizen, multiply by 1.212. If sex is not provided, and the patient is female, multiply by 0.742. Results for patients <18 years of age have not been validated by the MDRD study and should be interpreted with caution. eGFR Result Interpretation:eGFR > or=60 is in the Normal RangeeGFR < 60 may mean kidney diseaseeGFR < 15 may mean kidney failure Ranges recommended by the National Kidney Foundation, http://nkdep.nih.gov eGFR Non-AA (test 42.30 mL/min/1.73 eGFR (estimated code=eGFR Non-AA) m2 Glomerular Filtration Rate) is an estimated value, calculated from the patient's serum creatinine using the MDRD equation. It is NOT the patient's actual GFR. The eGFR provides a more clinically useful measure of kidney disease than serum creatinine alone.This calculation takes sex and race into account, if the information is provided. If the race is not provided, and the patient is -[place] Citizen, multiply by 1.212. If sex is not provided, and the patient is female, multiply by 0.742. Results for patients <18 years of age have not been validated by the MDRD study and should be interpreted with caution. eGFR Result Interpretation:eGFR > or=60 is in the Normal RangeeGFR < 60 may mean kidney diseaseeGFR < 15 may mean kidney failure Ranges recommended by the National Kidney Foundation, http://nkdep.nih.gov Troponin [id number] 15:51:28 Test Item Value Reference Range Comments Troponin-T (test 55.790 ng/L 0.000-14.000 Critical results called to code=Troponin-T) Akbar Nunez at _01/13/2019 15:51:08 CDT by EO. Read back and verified? YESThe CV of the assay at 99th percentile for both male and female patient population is < 10%. A rise and fall in JOSE with at least one value above the 99th percentile with clinical evidence of myocardial ischemia would support a diagnosis of AMI. A delta of at least 20% is recommended to access acute changes in results above the 99th percentile in serial measurements. Stable JOSE levels (<20%) delta above the 99th percentile URL would support a diagnosis of chronic myocardial injury. Basic Metabolic [id number] 05:32:27 Test Item Value Reference Range Comments Sodium Level (test code=Sodium Level) 124.0 mmol/L 135.0-145.0 Potassium Level (test code=Potassium Level) 4.1 mmol/L 3.5-5.1 Chloride Level (test code=Chloride Level) 92 mmol/L 98-105 CO2 (test code=CO2) 24 mmol/L 22-29 Anion Gap (test code=Anion Gap) 8 mmol/L 7-16 BUN (test code=BUN) 39.30 mg/dL 8.00-23.00 Creatinine Level (test code=Creatinine Level) 1.20 mg/dL 0.50-0.90 BUN/Creat Ratio (test code=BUN/Creat Ratio) 33 Glucose Level (test code=Glucose Level) 82 mg/dL 70-115 Calcium Level (test code=Calcium Level) 7.6 mg/dL 8.3-10.5 Basic Metabolic [id number] 05:32:27 Test Item Value Reference Range Comments Sodium Level (test 124.0 mmol/L 135.0-145.0 code=Sodium Level) Potassium Level (test 4.1 mmol/L 3.5-5.1 code=Potassium Level) Chloride Level (test 92 mmol/L 98-105 code=Chloride Level) CO2 (test code=CO2) 24 mmol/L 22-29 Anion Gap (test 8 mmol/L 7-16 code=Anion Gap) BUN (test code=BUN) 39.30 mg/dL 8.00-23.00 Creatinine Level (test 1.20 mg/dL 0.50-0.90 code=Creatinine Level) BUN/Creat Ratio (test 33 code=BUN/Creat Ratio) Glucose Level (test 82 mg/dL 70-115 code=Glucose Level) Calcium Level (test 7.6 mg/dL 8.3-10.5 code=Calcium Level) eGFR AA (test code=eGFR 51 mL/min/1.73 m2 eGFR (estimated Glomerular AA) Filtration Rate) is an estimated value, calculated from the patient's serum creatinine using the MDRD equation. It is NOT the patient's actual GFR. The eGFR provides a more clinically useful measure of kidney disease than serum creatinine alone.This calculation takes sex and race into account, if the information is provided. If the race is not provided, and the patient is -[place] Citizen, multiply by 1.212. If sex is not provided, and the patient is female, multiply by 0.742. Results for patients <18 years of age have not been validated by the MDRD study and should be interpreted with caution. eGFR Result Interpretation:eGFR > or=60 is in the Normal RangeeGFR < 60 may mean kidney diseaseeGFR < 15 may mean kidney failure Ranges recommended by the National Kidney Foundation, http://nkdep.nih.gov Basic Metabolic [id number] 05:32:27 Test Item Value Reference Range Comments Sodium Level (test 124.0 mmol/L 135.0-145.0 code=Sodium Level) Potassium Level (test 4.1 mmol/L 3.5-5.1 code=Potassium Level) Chloride Level (test 92 mmol/L 98-105 code=Chloride Level) CO2 (test code=CO2) 24 mmol/L 22-29 Anion Gap (test 8 mmol/L 7-16 code=Anion Gap) BUN (test code=BUN) 39.30 mg/dL 8.00-23.00 Creatinine Level (test 1.20 mg/dL 0.50-0.90 code=Creatinine Level) BUN/Creat Ratio (test 33 code=BUN/Creat Ratio) Glucose Level (test 82 mg/dL 70-115 code=Glucose Level) Calcium Level (test 7.6 mg/dL 8.3-10.5 code=Calcium Level) eGFR AA (test code=eGFR 51 mL/min/1.73 m2 eGFR (estimated AA) Glomerular Filtration Rate) is an estimated value, calculated from the patient's serum creatinine using the MDRD equation. It is NOT the patient's actual GFR. The eGFR provides a more clinically useful measure of kidney disease than serum creatinine alone.This calculation takes sex and race into account, if the information is provided. If the race is not provided, and the patient is -[place] Citizen, multiply by 1.212. If sex is not provided, and the patient is female, multiply by 0.742. Results for patients <18 years of age have not been validated by the MDRD study and should be interpreted with caution. eGFR Result Interpretation:eGFR > or=60 is in the Normal RangeeGFR < 60 may mean kidney diseaseeGFR < 15 may mean kidney failure Ranges recommended by the National Kidney Foundation, http://nkdep.nih.gov eGFR Non-AA (test 42.30 mL/min/1.73 eGFR (estimated code=eGFR Non-AA) m2 Glomerular Filtration Rate) is an estimated value, calculated from the patient's serum creatinine using the MDRD equation. It is NOT the patient's actual GFR. The eGFR provides a more clinically useful measure of kidney disease than serum creatinine alone.This calculation takes sex and race into account, if the information is provided. If the race is not provided, and the patient is -[place] Citizen, multiply by 1.212. If sex is not provided, and the patient is female, multiply by 0.742. Results for patients <18 years of age have not been validated by the MDRD study and should be interpreted with caution. eGFR Result Interpretation:eGFR > or=60 is in the Normal RangeeGFR < 60 may mean kidney diseaseeGFR < 15 may mean kidney failure Ranges recommended by the National Kidney Foundation, http://nkdep.nih.gov Automated [id number] 05:10:20 Test Item Value Reference Range Comments Neutro Auto (test code=Neutro Auto) 50.5 % 36.0-70.0 Lymph Auto (test code=Lymph Auto) 33.0 % 12.0-44.0 [place] Auto (test code=[place] Auto) 13.7 % 0.0-11.0 Eos, Auto (test code=Eos, Auto) 2.1 % 0.0-7.0 Basophil Auto (test code=Basophil Auto) 0.2 % 0.0-2.0 Neutro Absolute (test code=Neutro Absolute) 3.3 x10 1.6-7.4 Lymph Absolute (test code=Lymph Absolute) 2.17 x10 .50-4.60 [place] Absolute (test code=[place] Absolute) .90 x10 .00-1.20 Eos Absolute (test code=Eos Absolute) 0.14 x10 0.00-0.74 Baso Absolute (test code=Baso Absolute) 0.01 x10 0.00-0.21 IG [id number] 05:10:20 Test Item Value Reference Range Comments IG (test code=IG) 0.5 % 0.0-5.0 IG Abs (test code=IG Abs) 0 x10 Complete Blood Count with [id number] 05:10:19 Test Item Value Reference Range Comments WBC (test code=WBC) 6.6 x10 4.4-10.5 RBC (test code=RBC) 2.54 x10 3.75-5.20 Hgb (test code=Hgb) 9.1 g/dL 12.2-14.8 MCV (test code=MCV) 100.80 fL 80.00-100.00 Hct (test code=Hct) 25.6 % 36.5-44.4 MCHC (test code=MCHC) 35.50 g/dL 32.00-37.50 RDW CV (test code=RDW CV) 12.8 % 11.5-14.5 MCH (test code=MCH) 35.8 pg 27.0-32.5 Platelets (test 98.0 x10 140.0-440.0 Critical results called to code=Platelets) jamie reece RN at 01/13/2019 05:10:00 CDT by tb. Read back and verified? yes MPV (test code=MPV) 10.4 fL Slide Review (test code=Slide Auto Auto Result created by Review) GL_SJM_SLIDE_REV_AUTO GL_SJM_XN_RFLX GL_SJM_XN_RFLX nRBC (test code=nRBC) 0 NRBC Abs (test code=NRBC Abs) 0.00 x10 Pos Count XN (test code=Pos A Count XN) IPF (test code=IPF) 2 % Troponin [id number] 06:24:03 Test Item Value Reference Range Comments Troponin-T (test 64.280 ng/L 0.000-14.000 Critical results called to j code=Troponin-T) jadon at 01/12/2019 06:23:57 CDT by og. Read back and verified? yesThe CV of the assay at 99th percentile for both male and female patient population is < 10%. A rise and fall in JOSE with at least one value above the 99th percentile with clinical evidence of myocardial ischemia would support a diagnosis of AMI. A delta of at least 20% is recommended to access acute changes in results above the 99th percentile in serial measurements. Stable JOSE levels (<20%) delta above the 99th percentile URL would support a diagnosis of chronic myocardial injury. Basic Metabolic [id number] 06:11:42 Test Item Value Reference Range Comments Sodium Level (test code=Sodium Level) 126.0 mmol/L 135.0-145.0 Potassium Level (test code=Potassium Level) 4.6 mmol/L 3.5-5.1 Chloride Level (test code=Chloride Level) 90 mmol/L 98-105 CO2 (test code=CO2) 23 mmol/L 22-29 Anion Gap (test code=Anion Gap) 13 mmol/L 7-16 BUN (test code=BUN) 25.80 mg/dL 8.00-23.00 Creatinine Level (test code=Creatinine Level) 0.90 mg/dL 0.50-0.90 BUN/Creat Ratio (test code=BUN/Creat Ratio) 29 Glucose Level (test code=Glucose Level) 129 mg/dL 70-115 Calcium Level (test code=Calcium Level) 8.5 mg/dL 8.3-10.5 Basic Metabolic [id number] 06:11:42 Test Item Value Reference Range Comments Sodium Level (test 126.0 mmol/L 135.0-145.0 code=Sodium Level) Potassium Level (test 4.6 mmol/L 3.5-5.1 code=Potassium Level) Chloride Level (test 90 mmol/L 98-105 code=Chloride Level) CO2 (test code=CO2) 23 mmol/L 22-29 Anion Gap (test 13 mmol/L 7-16 code=Anion Gap) BUN (test code=BUN) 25.80 mg/dL 8.00-23.00 Creatinine Level (test 0.90 mg/dL 0.50-0.90 code=Creatinine Level) BUN/Creat Ratio (test 29 code=BUN/Creat Ratio) Glucose Level (test 129 mg/dL 70-115 code=Glucose Level) Calcium Level (test 8.5 mg/dL 8.3-10.5 code=Calcium Level) eGFR AA (test code=eGFR >60 mL/min/1.73 m2 eGFR (estimated AA) Glomerular Filtration Rate) is an estimated value, calculated from the patient's serum creatinine using the MDRD equation. It is NOT the patient's actual GFR. The eGFR provides a more clinically useful measure of kidney disease than serum creatinine alone.This calculation takes sex and race into account, if the information is provided. If the race is not provided, and the patient is -[place] Citizen, multiply by 1.212. If sex is not provided, and the patient is female, multiply by 0.742. Results for patients <18 years of age have not been validated by the MDRD study and should be interpreted with caution. eGFR Result Interpretation:eGFR > or=60 is in the Normal RangeeGFR < 60 may mean kidney diseaseeGFR < 15 may mean kidney failure Ranges recommended by the National Kidney Foundation, http://nkdep.nih.gov Basic Metabolic [id number] 06:11:42 Test Item Value Reference Range Comments Sodium Level (test 126.0 mmol/L 135.0-145.0 code=Sodium Level) Potassium Level (test 4.6 mmol/L 3.5-5.1 code=Potassium Level) Chloride Level (test 90 mmol/L 98-105 code=Chloride Level) CO2 (test code=CO2) 23 mmol/L 22-29 Anion Gap (test 13 mmol/L 7-16 code=Anion Gap) BUN (test code=BUN) 25.80 mg/dL 8.00-23.00 Creatinine Level (test 0.90 mg/dL 0.50-0.90 code=Creatinine Level) BUN/Creat Ratio (test 29 code=BUN/Creat Ratio) Glucose Level (test 129 mg/dL 70-115 code=Glucose Level) Calcium Level (test 8.5 mg/dL 8.3-10.5 code=Calcium Level) eGFR AA (test code=eGFR >60 mL/min/1.73 m2 eGFR (estimated AA) Glomerular Filtration Rate) is an estimated value, calculated from the patient's serum creatinine using the MDRD equation. It is NOT the patient's actual GFR. The eGFR provides a more clinically useful measure of kidney disease than serum creatinine alone.This calculation takes sex and race into account, if the information is provided. If the race is not provided, and the patient is -[place] Citizen, multiply by 1.212. If sex is not provided, and the patient is female, multiply by 0.742. Results for patients <18 years of age have not been validated by the MDRD study and should be interpreted with caution. eGFR Result Interpretation:eGFR > or=60 is in the Normal RangeeGFR < 60 may mean kidney diseaseeGFR < 15 may mean kidney failure Ranges recommended by the National Kidney Foundation, http://nkdep.nih.gov eGFR Non-AA (test 58.95 mL/min/1.73 eGFR (estimated code=eGFR Non-AA) m2 Glomerular Filtration Rate) is an estimated value, calculated from the patient's serum creatinine using the MDRD equation. It is NOT the patient's actual GFR. The eGFR provides a more clinically useful measure of kidney disease than serum creatinine alone.This calculation takes sex and race into account, if the information is provided. If the race is not provided, and the patient is -[place] Citizen, multiply by 1.212. If sex is not provided, and the patient is female, multiply by 0.742. Results for patients <18 years of age have not been validated by the MDRD study and should be interpreted with caution. eGFR Result Interpretation:eGFR > or=60 is in the Normal RangeeGFR < 60 may mean kidney diseaseeGFR < 15 may mean kidney failure Ranges recommended by the National Kidney Foundation, http://nkdep.nih.gov Complete Blood Count without [id number] 05:54:23 Test Item Value Reference Range Comments WBC (test code=WBC) 8.7 x10 4.4-10.5 RBC (test code=RBC) 2.83 x10 3.75-5.20 Hgb (test code=Hgb) 10.1 g/dL 12.2-14.8 Hct (test code=Hct) 28.1 % 36.5-44.4 MCV (test code=MCV) 99.30 fL 80.00-100.00 MCH (test code=MCH) 35.7 pg 27.0-32.5 MCHC (test code=MCHC) 35.90 g/dL 32.00-37.50 RDW CV (test code=RDW CV) 12.4 % 11.5-14.5 Platelets (test code=Platelets) 143.0 x10 140.0-440.0 MPV (test code=MPV) 10.3 fL nRBC (test code=nRBC) 0 NRBC Abs (test code=NRBC Abs) 0.00 x10 IPF (test code=IPF) 0 % MRI Spine Lumbar w/o [id number] 15:59:28Patient: ELISABETH CONDON Date/Time01/11/2019 15: 00 CDTReason for ExamCauda equina syndromeReportEXAM: MRI LUMBAR SPINE WITHOUT CONTRASTINDICATION: Cauda equina syndromeCOMPARISON: None availableTECHNIQUE: Multiplanar, multisequence noncontrast MR imaging of the lumbar spine. IV contrast: None.FINDINGS:There are 5 nonrib-bearing lumbarvertebra. The vertebral bodies are normal in height. There is Modic type I signal changes of the opposing endplates of L2-L3. There is rightward scoliotic curvature of the lumbar spine. The facet joints and spinous processes are normal in alignment. There is diffuse facet joint arthropathy. There is loss of the intervertebral disc height throughout the lumbar spine.The conus medullaris terminates at T12 and is normal in signal intensity and caliber. The cauda equina is normal.The posterior paraspinal soft tissues are normal. The imaged portion of the abdomen is unremarkable.INDIVIDUAL LEVELS:L1-L2:Minimal disc bulge measuring 3 mm. No spinal canal stenosis. Rightward scoliotic curvature with the sacral nerve roots crowded within the left aspect of the thecal sac within the left lateral recess. There is mild effacement of the left lateral recess. Facet joint hypertrophy with severe left neuroforaminal stenosis and impingement of the exiting left L1 nerve root.L2-L3: Circumferential disc bulge measuring 5 mm. Rightward scoliotic curvature with the sacral nerve roots crowded within the left aspect of the thecal sac within the left lateral recess. There is mild effacement of the left lateral recess. Severe left and moderate right neuroforaminal stenosis. There is mass effect on the exiting L2 nerve roots.L3- L4: Circumferential disc bulge measuring 5 mm. No spinal canal stenosis. Facet joint hypertrophy with moderate neuroforaminal stenosis bilaterally.L4-L5: Circumferential disc bulge measuring 4 mm. No spinal canal stenosis. Facet joint hypertrophy with severe right neuroforaminal stenosis. There is mass effect on the exiting right L4 nerve root.L5-S1: Minimal disc bulge measuring 3 mm. No spinal canal stenosis. Facet joint hypertrophy with moderate neuroforaminal stenosis.IMPRESSION:1. 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 Rightward scolioticcurvature of the lumbar spine with the sacral nerve roots crowded within the left aspect of the thecal sac within the left lateral recess at L1-L2 and L2-L3.3. Severe neuroforaminal stenosis at L1-L2on the left, L2-L3 on the left and L4-L5 on the right with mass effect on the exiting nerve roots.4. Moderate neuroforaminal stenosis also 3 on the right, L3-L4 bilaterally and L5-S1 bilaterally.ExamDate/ Time01/11/2019 15:00 CDTReportLOCATION: R16 Final Dictated by: MD Reyez Melanie CDictated DT/TM: 01/11/2019 3:51 pmSigned by: MD Reyez Melanie CSigned (Electronic Signature): 01/11/2019 3:59 pmUrine [id number] 08:57:32 Test Item Value Reference Range Comments ORGANISM (test code=ORGANISM) Escherichia coli Amikacin (test code=Amik) Ampicillin (test code=Amp) Ampicillin/Sulbactam (test code=Amp/Sul) Cefazolin (test code=Cefaz) Cefepime (test code=Cefep) Cefotaxime (test code=Cefo) Ceftazidime (test code=Ceftaz) Ceftriaxone (test code=Ceftri) Cefuroxime (test code=Cefur) Ciprofloxacin (test code=Cipro) Gentamicin (test code=Gent) Imipenem (test code=Imi) Levofloxacin (test code=Levo) Meropenem (test code=Juan Alberto) Nitrofurantoin (test code=Nitro) Piperacillin/Tazobactam (test code=Pip/Vinod) Tobramycin (test code=Tobra) Trimethoprim/Sulfa (test code=SXT) Final Report (test code=Final >=100,000 cfu/ml Escherichia Report) coli 20,000 cfu/ml Diphtheroids C Urine Added by GL_SJM_UA_CUL_INDComplete Blood Count without [id number] 07:00:40 Test Item Value Reference Range Comments WBC (test code=WBC) 3.8 x10 4.4-10.5 RBC (test code=RBC) 2.64 x10 3.75-5.20 Hgb (test code=Hgb) 9.5 g/dL 12.2-14.8 Hct (test code=Hct) 26.7 % 36.5-44.4 MCV (test code=MCV) 101.10 fL 80.00-100.00 MCH (test code=MCH) 36.0 pg 27.0-32.5 MCHC (test code=MCHC) 35.60 g/dL 32.00-37.50 RDW CV (test code=RDW CV) 12.3 % 11.5-14.5 Platelets (test 96.0 x10 140.0-440.0 Critical results called to code=Platelets) Li Tsang RN at 01/11/2019 07:00:11 CDT by DD. Read back and verified? Yes. consistent. MPV (test code=MPV) 10.1 fL nRBC (test code=nRBC) 0 NRBC Abs (test code=NRBC Abs) 0.00 x10 IPF (test code=IPF) 2 % Hemoglobin [id number] 06:44:54 Test Item Value Reference Range Comments Hemoglobin A1c (test 5.0 % 4.8-5.9 Non Diabetic 4.8-5.9%Diabetic code=Hemoglobin A1c) <7.0% Thyroid Stimulating [id number] 06:39:31 Test Item Value Reference Range Comments TSH (test code=TSH) 0.771 mIU/mL 0.270-4.200 Troponin [id number] 06:33:45 Test Item Value Reference Range Comments Troponin-T (test 35.310 ng/L 0.000-14.000 Critical results called to j code=Troponin-T) jadon at 01/11/2019 06:33:40 CDT by og. Read back and verified? yesThe CV of the assay at 99th percentile for both male and female patient population is < 10%. A rise and fall in JOSE with at least one value above the 99th percentile with clinical evidence of myocardial ischemia would support a diagnosis of AMI. A delta of at least 20% is recommended to access acute changes in results above the 99th percentile in serial measurements. Stable JOSE levels (<20%) delta above the 99th percentile URL would support a diagnosis of chronic myocardial injury. Magnesium [id number] 06:29:50 Test Item Value Reference Range Comments Magnesium Level (test code=Magnesium Level) 1.7 mg/dL 1.7-2.5 Phosphorus [id number] 06:29:50 Test Item Value Reference Range Comments Phosphorus Level (test code=Phosphorus Level) 3.70 mg/dL 2.70-4.50 Basic Metabolic [id number] 06:29:49 Test Item Value Reference Range Comments Sodium Level (test code=Sodium Level) 130.0 mmol/L 135.0-145.0 Potassium Level (test code=Potassium Level) 4.9 mmol/L 3.5-5.1 Chloride Level (test code=Chloride Level) 94 mmol/L 98-105 CO2 (test code=CO2) 26 mmol/L 22-29 Anion Gap (test code=Anion Gap) 10 mmol/L 7-16 BUN (test code=BUN) 21.50 mg/dL 8.00-23.00 Creatinine Level (test code=Creatinine Level) 0.80 mg/dL 0.50-0.90 BUN/Creat Ratio (test code=BUN/Creat Ratio) 27 Glucose Level (test code=Glucose Level) 126 mg/dL 70-115 Calcium Level (test code=Calcium Level) 8.0 mg/dL 8.3-10.5 Lipid [id number] 06:29:49 Test Item Value Reference Range Comments Cholesterol Total (test 133 mg/dL 0-200 RISK OF HEART DISEASEPublished code=Cholesterol Total) by [place] Citizen Heart Association Analyte Optimal Borderline Increased RiskCHOL <200 200-239 >240TRIG <150 150-199 >200HDL Male >60 <40HDL Female >60 <50LDL <100 130-159 >160LDL Near optimal is 100-129 Triglycerides (test 38 mg/dL 9-200 code=Triglycerides) HDL (test code=HDL) 82 mg/dL 50-60 LDL (test code=LDL) 43 mg/dL 0-130 The equation being used in this calculation is LDL=(Chol - HDL) - (Trig / 5) VLDL (test code=VLDL) 8 mg/dL 5-40 The equation being used in this calculation is VLDL=Trig / 5 Chol/HDL (test 1.6 ratio 0.0-4.4 code=Chol/HDL) LDL/HDL Ratio (test 1 The equation being used in this code=LDL/HDL Ratio) calculation is LDL/HDL Ratio=LDL Calc/HDL Chol Basic Metabolic [id number] 06:29:49 Test Item Value Reference Range Comments Sodium Level (test 130.0 mmol/L 135.0-145.0 code=Sodium Level) Potassium Level (test 4.9 mmol/L 3.5-5.1 code=Potassium Level) Chloride Level (test 94 mmol/L 98-105 code=Chloride Level) CO2 (test code=CO2) 26 mmol/L 22-29 Anion Gap (test 10 mmol/L 7-16 code=Anion Gap) BUN (test code=BUN) 21.50 mg/dL 8.00-23.00 Creatinine Level (test 0.80 mg/dL 0.50-0.90 code=Creatinine Level) BUN/Creat Ratio (test 27 code=BUN/Creat Ratio) Glucose Level (test 126 mg/dL 70-115 code=Glucose Level) Calcium Level (test 8.0 mg/dL 8.3-10.5 code=Calcium Level) eGFR AA (test code=eGFR >60 mL/min/1.73 m2 eGFR (estimated AA) Glomerular Filtration Rate) is an estimated value, calculated from the patient's serum creatinine using the MDRD equation. It is NOT the patient's actual GFR. The eGFR provides a more clinically useful measure of kidney disease than serum creatinine alone.This calculation takes sex and race into account, if the information is provided. If the race is not provided, and the patient is -[place] Citizen, multiply by 1.212. If sex is not provided, and the patient is female, multiply by 0.742. Results for patients <18 years of age have not been validated by the MDRD study and should be interpreted with caution. eGFR Result Interpretation:eGFR > or=60 is in the Normal RangeeGFR < 60 may mean kidney diseaseeGFR < 15 may mean kidney failure Ranges recommended by the National Kidney Foundation, http://nkdep.nih.gov Basic Metabolic [id number] 06:29:49 Test Item Value Reference Range Comments Sodium Level (test 130.0 mmol/L 135.0-145.0 code=Sodium Level) Potassium Level (test 4.9 mmol/L 3.5-5.1 code=Potassium Level) Chloride Level (test 94 mmol/L 98-105 code=Chloride Level) CO2 (test code=CO2) 26 mmol/L 22-29 Anion Gap (test 10 mmol/L 7-16 code=Anion Gap) BUN (test code=BUN) 21.50 mg/dL 8.00-23.00 Creatinine Level (test 0.80 mg/dL 0.50-0.90 code=Creatinine Level) BUN/Creat Ratio (test 27 code=BUN/Creat Ratio) Glucose Level (test 126 mg/dL 70-115 code=Glucose Level) Calcium Level (test 8.0 mg/dL 8.3-10.5 code=Calcium Level) eGFR AA (test code=eGFR >60 mL/min/1.73 m2 eGFR (estimated AA) Glomerular Filtration Rate) is an estimated value, calculated from the patient's serum creatinine using the MDRD equation. It is NOT the patient's actual GFR. The eGFR provides a more clinically useful measure of kidney disease than serum creatinine alone.This calculation takes sex and race into account, if the information is provided. If the race is not provided, and the patient is -[place] Citizen, multiply by 1.212. If sex is not provided, and the patient is female, multiply by 0.742. Results for patients <18 years of age have not been validated by the MDRD study and should be interpreted with caution. eGFR Result Interpretation:eGFR > or=60 is in the Normal RangeeGFR < 60 may mean kidney diseaseeGFR < 15 may mean kidney failure Ranges recommended by the National Kidney Foundation, http://nkdep.nih.gov eGFR Non-AA (test >60.00 mL/min/1.73 eGFR (estimated code=eGFR Non-AA) m2 Glomerular Filtration Rate) is an estimated value, calculated from the patient's serum creatinine using the MDRD equation. It is NOT the patient's actual GFR. The eGFR provides a more clinically useful measure of kidney disease than serum creatinine alone.This calculation takes sex and race into account, if the information is provided. If the race is not provided, and the patient is -[place] Citizen, multiply by 1.212. If sex is not provided, and the patient is female, multiply by 0.742. Results for patients <18 years of age have not been validated by the MDRD study and should be interpreted with caution. eGFR Result Interpretation:eGFR > or=60 is in the Normal RangeeGFR < 60 may mean kidney diseaseeGFR < 15 may mean kidney failure Ranges recommended by the National Kidney Foundation, http://nkdep.nih.gov Creatine [id number] 21:10:10 Test Item Value Reference Range Comments CK (test code=CK) 124 U/L 26-192 Troponin [id number] 21:10:10 Test Item Value Reference Range Comments Troponin-T (test 59.230 ng/L 0.000-14.000 Critical results called to Tony code=Troponin-T) Florencio at 01/10/2019 21:09:56 CDT by osiris. Read back and verified? yesThe CV of the assay at 99th percentile for both male and female patient population is < 10%. A rise and fall in JOSE with at least one value above the 99th percentile with clinical evidence of myocardial ischemia would support a diagnosis of AMI. A delta of at least 20% is recommended to access acute changes in results above the 99th percentile in serial measurements. Stable JOSE levels (<20%) delta above the 99th percentile URL would support a diagnosis of chronic myocardial injury. CT Spine Lumbar w/o [id number] 13:50:06Patient: ELISBAETH CONDON Date/Time01/10/2019 13: 33 CDTReason for ExamBack painReportEXAM: CT LUMBAR SPINE WITHOUT CONTRASTINDICATION: Back painCOMPARISON: None availableTECHNIQUE: Axial CT imaging of the lumbar spine was obtained without administration of intravenous contrast. Sagittal and coronal reconstructions were submitted for review.IV contrast: None.DLP: 1536.1 mGy-cmFINDINGS:There are 5 nonrib-bearing lumbar vertebra. The vertebral bodies are normal in height and density. There is rightward scoliotic curvature of the lumbar spine. Thefacet joints and spinous processes are normal in alignment. There is diffuse facet joint arthropathy. There is loss of the intervertebral disc height throughout the lumbar spine.No soft tissue abnormality is identified. The imaged portion of the abdomen is unremarkable.Individual levels:L1-L2: No spinal canal stenosis. Facet joint hypertrophy with severe left and mild right neuroforaminal stenosis.L2-L3: No spinal canal stenosis. Facet joint hypertrophy with severe neuroforaminal stenosis bilaterally.L3-L4: No spinal canal stenosis. Facet joint hypertrophy with severe right and moderate left neuralforaminal stenosis.L4-L5: No spinal canal stenosis. Facet joint hypertrophy with moderate neuroforaminal stenosis.L5 -S1: No spinal canal stenosis. Facet joint and the width moderate neuroforaminal stenosis bilaterally.IMPRESSION:1. No acute abnormality of the lumbar spine.2. Moderate discogenic disease and facet joint arthropathy throughout the lumbar spine.3. Rightward scoliotic curvature of the lumbar spine.4. Severe neuroforaminal stenosis at L1-L2 on the left, L2-L3 bilaterally, and L3-L4 on the right.LOCATION: [id number] CT exam was performed according to our departmental dose optimization program, which includes automated exposure control, adjustment of the mA and/or kV according to thepatient size and/or use of iterative reconstructive technique. Final Dictated by: MD Reyez Melanie CDictated DT/TM: 01/10/2019 1:45 pmSigned by: MD Reyez Melanie CSigned (ElectronicSignature): 01/10/2019 1:50 pmCT Spine Thoracic w/o [id number] 13:45:49Patient: ELISABETH CONDON Date/Time01/10/2019 13: 33 CDTReason for ExamArthritis, knownReportEXAM: CT THORACIC SPINE WITHOUT CONTRASTINDICATION: ArthritisCOMPARISON: None availableTECHNIQUE: Axial CT imaging of the thoracic spine was obtained without contrast. Sagittal and coronal reformatted images were submitted for review.IV contrast: None.FINDINGS: The vertebral bodies are normal in height, alignment and density. The facet joints and spinous processes are normal in alignment. There is diffuse disc height loss throughout the thoracic spine. No spinal canal or neuroforaminal stenosis.No soft tissue abnormality is identified. Imaged portions of the chest is unremarkable.IMPRESSION:1. No acute abnormality of the thoracic spine.2. Diffuse discogenic disease throughout the thoracic spine.LOCATION: [id number] CT exam was performed according to our departmental dose optimization program, which includes automated exposure control, adjustment of the mA and/or kV according to the patient size and/or use of iterative reconstructive technique.* Final Dictated by: MD Reyez Melanie CDictated DT/TM: 01/10/2019 1 :44 pmSigned by: MD Reyez Melanie CSigned (Electronic Signature): 2018 1:45 [facility] Spine Cervical w/o [id number] 13:44:38Patient: ELISABETH CONDON Date/Time2018 13:33 CDTReason for ExamInjuryReportEXAM: CT CERVICAL SPINE WITHOUT CONTRASTINDICATION: InjuryCOMPARISON: None availableTECHNIQUE: Axial CT imaging of the cervical spine was obtained without intravenous contrast. Coronal and sagittal reformatted images were submitted for review. IV contrast: NoneDLP: 441.9 mGy-cmDISCUSSION:No acute fracture or dislocation is identified. The atlantoaxial and atlantooccipital articulations are normal. The vertebral bodies are normal in height and density. There is grade 2 anterolisthesis of C3 over C4. The facet joints and spinous processes are normal in alignment. There is diffuse facet joint arthropathy. There is loss of the intervertebral disc height throughout the cervical spine.There is moderate spinal canal stenosis at C3-C4. The remaining spinal canal is unremarkable. There is tvjm-ds-binoojih neuroforaminal stenosis noted throughout the cervical spine, most prominent at C3-C4.The prevertebral and posterior paraspinal soft tissues are normal.IMPRESSION:1. No acute abnormality of the cervical spine.2. Discogenic disease and facet joint arthropathy throughout the cervical spine.3. Moderate spinal canal stenosis at C3-C4.4. Mild to moderate neuroforaminal stenosis throughout the cervical spine, most prominent at C3-C4.LOCATION: [id number] CT exam wasperformed according to our departmental dose optimization program, which includes automated exposurecontrol, adjustment of the mA and/or kV according to the patient size and/or use of iterative reconstructive technique. Final Dictated by: MD Reyez Melanie CDictated DT/TM: 01/10/2019 1:42 pmSigned by: MD Reyez Melanie CSigned (Electronic Signature) : 01/10/2019 1:44 pmUrinalysis [id number] 12:39:09 Test Item Value Reference Range Comments UA WBC (test code=UA WBC) 30-50 0-5 UA RBC (test code=UA RBC) 6-10 0-5 UA Bacteria (test code=UA Bacteria) Many UA Squam Epithelial (test code=UA Squam Epithelial) 6-10 Urinalysis with Culture, if [id number] 12:23:59 Test Item Value Reference Range Comments UA Color (test code=UA Color) YELLO Yellow UA Appear (test code=UA SCLD Clear Appear) UA pH (test code=UA pH) 7 UA Spec Grav (test code=UA 1.010 1.001-1.035 Spec Grav) UA Glucose (test code=UA NEG Negative Glucose) UA Bili (test code=UA Bili) NEG Negative UA Ketones (test code=UA NEG Negative Ketones) UA Blood (test code=UA Blood) 50 cells/mcL Negative UA Protein (test code=UA 150 mg/dL Negative Protein) UA Urobilinogen (test code=UA 0.2 mg/dL Urobilinogen) UA Nitrite (test code=UA NEG Negative Nitrite) UA Leuk Est (test code=UA Leuk 500 cells/mcL Negative Est) UA Micro Ind? (test code=UA Indicated Not Indicated Result created by rule Micro Ind?) GL_SJM_UA_MICRO_IND [id number] 12:19:38 Test Item Value Reference Range Comments RBC Morph (test code=RBC Morph) As Indicated Normal Anisocyte (test code=Anisocyte) None None Hypochromia (test code=Hypochromia) 1+ None Seen Microcyte (test code=Microcyte) None Seen None Seen Macrocyte (test code=Macrocyte) 1+ None Seen Poik (test code=Poik) None Seen None Seen Polychrom (test code=Polychrom) None Seen None Seen Acanthocyte (test code=Acanthocyte) None Seen None Seen Baso Stippling RBC (test code=Baso Stippling None Seen None Seen RBC) Plt Estimation (test code=Plt Estimation) Decreased Normal Complete Blood Count with [id number] 12:19:38 Test Item Value Reference Range Comments WBC (test code=WBC) 5.4 x10 4.4-10.5 RBC (test code=RBC) 2.77 x10 3.75-5.20 Hgb (test code=Hgb) 10.0 g/dL 12.2-14.8 Hct (test code=Hct) 28.0 % 36.5-44.4 MCV (test code=MCV) 101.10 fL 80.00-100.00 MCHC (test code=MCHC) 35.70 g/dL 32.00-37.50 RDW CV (test code=RDW CV) 12.2 % 11.5-14.5 MCH (test code=MCH) 36.1 pg 27.0-32.5 Platelets (test 91.0 x10 140.0-440.0 Critical results called to code=Platelets) moyrn at 01/10/2019 12:18:55 CDT by fs. Read back and verified? yesper nurse, patient is currently on aspirinno other info was given MPV (test code=MPV) 10.2 fL Slide Review (test code=Slide Smear Auto Result created by Review) GL_SJM_SLIDE_REV_AUTO GL_SJM_XN_RFLX GL_SJM_XN_RFLX nRBC (test code=nRBC) 0 NRBC Abs (test code=NRBC Abs) 0.00 x10 Pos Count XN (test code=Pos A Count XN) IPF (test code=IPF) 2 % Automated [id number] 11:57:39 Test Item Value Reference Range Comments Neutro Auto (test code=Neutro Auto) 64.0 % 36.0-70.0 Lymph Auto (test code=Lymph Auto) 20.9 % 12.0-44.0 [place] Auto (test code=[place] Auto) 9.3 % 0.0-11.0 Eos, Auto (test code=Eos, Auto) 5.2 % 0.0-7.0 Basophil Auto (test code=Basophil Auto) 0.4 % 0.0-2.0 Neutro Absolute (test code=Neutro Absolute) 3.5 x10 1.6-7.4 Lymph Absolute (test code=Lymph Absolute) 1.13 x10 .50-4.60 [place] Absolute (test code=[place] Absolute) .50 x10 .00-1.20 Eos Absolute (test code=Eos Absolute) 0.28 x10 0.00-0.74 Baso Absolute (test code=Baso Absolute) 0.02 x10 0.00-0.21 IG [id number] 11:57:39 Test Item Value Reference Range Comments IG (test code=IG) 0.2 % 0.0-5.0 IG Abs (test code=IG Abs) 0 x10 Comprehensive Metabolic [id number] 11:47:16 Test Item Value Reference Range Comments Sodium Level (test code=Sodium Level) 130.0 mmol/L 135.0-145.0 Potassium Level (test code=Potassium Level) 4.2 mmol/L 3.5-5.1 Chloride Level (test code=Chloride Level) 92 mmol/L 98-105 CO2 (test code=CO2) 27 mmol/L 22-29 Anion Gap (test code=Anion Gap) 11 mmol/L 7-16 BUN (test code=BUN) 20.30 mg/dL 8.00-23.00 Creatinine Level (test code=Creatinine Level) 0.80 mg/dL 0.50-0.90 BUN/Creat Ratio (test code=BUN/Creat Ratio) 25 Glucose Level (test code=Glucose Level) 133 mg/dL 70-115 Calcium Level (test code=Calcium Level) 8.1 mg/dL 8.3-10.5 Alk Phos (test code=Alk Phos) 133 U/L 35-104 Bilirubin Total (test code=Bilirubin Total) 1.2 mg/dL 0.1-0.9 Albumin Level (test code=Albumin Level) 3.6 g/dL 3.5-5.2 Protein Total (test code=Protein Total) 6.4 g/dL 6.4-8.3 ALT (test code=ALT) 23 U/L 1-33 AST (test code=AST) 37 U/L 1-32 Globulin (test code=Globulin) 2.8 g/dL 2.9-3.1 A/G Ratio (test code=A/G Ratio) 1.3 ratio Comprehensive Metabolic [id number] 11:47:16 Test Item Value Reference Range Comments Sodium Level (test 130.0 mmol/L 135.0-145.0 code=Sodium Level) Potassium Level (test 4.2 mmol/L 3.5-5.1 code=Potassium Level) Chloride Level (test 92 mmol/L 98-105 code=Chloride Level) CO2 (test code=CO2) 27 mmol/L 22-29 Anion Gap (test 11 mmol/L 7-16 code=Anion Gap) BUN (test code=BUN) 20.30 mg/dL 8.00-23.00 Creatinine Level (test 0.80 mg/dL 0.50-0.90 code=Creatinine Level) BUN/Creat Ratio (test 25 code=BUN/Creat Ratio) Glucose Level (test 133 mg/dL 70-115 code=Glucose Level) Calcium Level (test 8.1 mg/dL 8.3-10.5 code=Calcium Level) Alk Phos (test code=Alk 133 U/L 35-104 Phos) Bilirubin Total (test 1.2 mg/dL 0.1-0.9 code=Bilirubin Total) Albumin Level (test 3.6 g/dL 3.5-5.2 code=Albumin Level) Protein Total (test 6.4 g/dL 6.4-8.3 code=Protein Total) ALT (test code=ALT) 23 U/L 1-33 AST (test code=AST) 37 U/L 1-32 Globulin (test 2.8 g/dL 2.9-3.1 code=Globulin) A/G Ratio (test code=A/G 1.3 ratio Ratio) eGFR AA (test code=eGFR >60 mL/min/1.73 m2 eGFR (estimated AA) Glomerular Filtration Rate) is an estimated value, calculated from the patient's serum creatinine using the MDRD equation. It is NOT the patient's actual GFR. The eGFR provides a more clinically useful measure of kidney disease than serum creatinine alone.This calculation takes sex and race into account, if the information is provided. If the race is not provided, and the patient is -[place] Citizen, multiply by 1.212. If sex is not provided, and the patient is female, multiply by 0.742. Results for patients <18 years of age have not been validated by the MDRD study and should be interpreted with caution. eGFR Result Interpretation:eGFR > or=60 is in the Normal RangeeGFR < 60 may mean kidney diseaseeGFR < 15 may mean kidney failure Ranges recommended by the National Kidney Foundation, http://nkdep.nih.gov Comprehensive Metabolic [id number] 11:47:16 Test Item Value Reference Range Comments Sodium Level (test 130.0 mmol/L 135.0-145.0 code=Sodium Level) Potassium Level (test 4.2 mmol/L 3.5-5.1 code=Potassium Level) Chloride Level (test 92 mmol/L 98-105 code=Chloride Level) CO2 (test code=CO2) 27 mmol/L 22-29 Anion Gap (test 11 mmol/L 7-16 code=Anion Gap) BUN (test code=BUN) 20.30 mg/dL 8.00-23.00 Creatinine Level (test 0.80 mg/dL 0.50-0.90 code=Creatinine Level) BUN/Creat Ratio (test 25 code=BUN/Creat Ratio) Glucose Level (test 133 mg/dL 70-115 code=Glucose Level) Calcium Level (test 8.1 mg/dL 8.3-10.5 code=Calcium Level) Alk Phos (test code=Alk 133 U/L 35-104 Phos) Bilirubin Total (test 1.2 mg/dL 0.1-0.9 code=Bilirubin Total) Albumin Level (test 3.6 g/dL 3.5-5.2 code=Albumin Level) Protein Total (test 6.4 g/dL 6.4-8.3 code=Protein Total) ALT (test code=ALT) 23 U/L 1-33 AST (test code=AST) 37 U/L 1-32 Globulin (test 2.8 g/dL 2.9-3.1 code=Globulin) A/G Ratio (test code=A/G 1.3 ratio Ratio) eGFR AA (test code=eGFR >60 mL/min/1.73 m2 eGFR (estimated AA) Glomerular Filtration Rate) is an estimated value, calculated from the patient's serum creatinine using the MDRD equation. It is NOT the patient's actual GFR. The eGFR provides a more clinically useful measure of kidney disease than serum creatinine alone.This calculation takes sex and race into account, if the information is provided. If the race is not provided, and the patient is -[place] Citizen, multiply by 1.212. If sex is not provided, and the patient is female, multiply by 0.742. Results for patients <18 years of age have not been validated by the MDRD study and should be interpreted with caution. eGFR Result Interpretation:eGFR > or=60 is in the Normal RangeeGFR < 60 may mean kidney diseaseeGFR < 15 may mean kidney failure Ranges recommended by the National Kidney Foundation, http://nkdep.nih.gov eGFR Non-AA (test >60.00 mL/min/1.73 eGFR (estimated code=eGFR Non-AA) m2 Glomerular Filtration Rate) is an estimated value, calculated from the patient's serum creatinine using the MDRD equation. It is NOT the patient's actual GFR. The eGFR provides a more clinically useful measure of kidney disease than serum creatinine alone.This calculation takes sex and race into account, if the information is provided. If the race is not provided, and the patient is -[place] Citizen, multiply by 1.212. If sex is not provided, and the patient is female, multiply by 0.742. Results for patients <18 years of age have not been validated by the MDRD study and should be interpreted with caution. eGFR Result Interpretation:eGFR > or=60 is in the Normal RangeeGFR < 60 may mean kidney diseaseeGFR < 15 may mean kidney failure Ranges recommended by the National Kidney Foundation, http://nkdep.nih.gov XR Hip Complete 2+ Views [id number] 10:51:53Patient: ELISABETH CONDON Date/Time01/10/2019 10: 13 CDTReason for ExamArthritis, knownReportEXAM: LEFT HIP 2 VIEWSINDICATION: ArthritisCOMPARISON: None availableTECHNIQUE: AP view of the pelvis and AP and frog-leg views of the left hip.FINDINGS:No acute fracture or dislocation is identified. There is joint space narrowing of both hip joints withsubchondral sclerosis. The sacroiliac joints and pubic symphysis are in normal alignment. There is sclerosis of the bilateral sacroiliac joints. There are moderate degenerative changes in the lower lumbar spine. No soft tissue abnormality is identified.IMPRESSION:1. No acute fracture. Mild DJD of both hip joints.2. Moderate degenerative changes of the lower lumbar spine.LOCATION: R16 Final Dictated by: MD Reyez Melanie CDictated DT/TM: 01/10/2019 10: 51 amSigned by: MD Reyez Melanie CSigned (Electronic Signature): 2018 10:51 amPartial Thromboplastin [id number] 12:23:51 Test Item Value Reference Range Comments Partial Thromboplastin Time (test code=Partial 28.20 seconds 24.39-37.25 Thromboplastin Time) Prothrombin Time and [id number] 12:23:50 Test Item Value Reference Range Comments Prothrombin Time (test code=Prothrombin Time) 12.9 seconds 9.8-13.4 INR (test code=INR) 1.1 ratio 0.6-1.2 Creatine [id number] 12:16:32 Test Item Value Reference Range Comments CK (test code=CK) 87 U/L 26-192 Comprehensive Metabolic [id number] 12:16:31 Test Item Value Reference Range Comments Sodium Level (test code=Sodium Level) 130.0 mmol/L 135.0-145.0 Potassium Level (test code=Potassium Level) 4.4 mmol/L 3.5-5.1 Chloride Level (test code=Chloride Level) 93 mmol/L 98-105 CO2 (test code=CO2) 26 mmol/L 22-29 Anion Gap (test code=Anion Gap) 11 mmol/L 7-16 BUN (test code=BUN) 18.50 mg/dL 8.00-23.00 Creatinine Level (test code=Creatinine Level) 0.90 mg/dL 0.50-0.90 BUN/Creat Ratio (test code=BUN/Creat Ratio) 21 Glucose Level (test code=Glucose Level) 89 mg/dL 70-115 Calcium Level (test code=Calcium Level) 8.8 mg/dL 8.3-10.5 Alk Phos (test code=Alk Phos) 177 U/L 35-104 Bilirubin Total (test code=Bilirubin Total) 0.8 mg/dL 0.1-0.9 Albumin Level (test code=Albumin Level) 3.6 g/dL 3.5-5.2 Protein Total (test code=Protein Total) 7.0 g/dL 6.4-8.3 ALT (test code=ALT) 20 U/L 1-33 AST (test code=AST) 32 U/L 1-32 Globulin (test code=Globulin) 3.4 g/dL 2.9-3.1 A/G Ratio (test code=A/G Ratio) 1.1 ratio Comprehensive Metabolic [id number] 12:16:31 Test Item Value Reference Range Comments Sodium Level (test 130.0 mmol/L 135.0-145.0 code=Sodium Level) Potassium Level (test 4.4 mmol/L 3.5-5.1 code=Potassium Level) Chloride Level (test 93 mmol/L 98-105 code=Chloride Level) CO2 (test code=CO2) 26 mmol/L 22-29 Anion Gap (test 11 mmol/L 7-16 code=Anion Gap) BUN (test code=BUN) 18.50 mg/dL 8.00-23.00 Creatinine Level (test 0.90 mg/dL 0.50-0.90 code=Creatinine Level) BUN/Creat Ratio (test 21 code=BUN/Creat Ratio) Glucose Level (test 89 mg/dL 70-115 code=Glucose Level) Calcium Level (test 8.8 mg/dL 8.3-10.5 code=Calcium Level) Alk Phos (test code=Alk 177 U/L 35-104 Phos) Bilirubin Total (test 0.8 mg/dL 0.1-0.9 code=Bilirubin Total) Albumin Level (test 3.6 g/dL 3.5-5.2 code=Albumin Level) Protein Total (test 7.0 g/dL 6.4-8.3 code=Protein Total) ALT (test code=ALT) 20 U/L 1-33 AST (test code=AST) 32 U/L 1-32 Globulin (test 3.4 g/dL 2.9-3.1 code=Globulin) A/G Ratio (test code=A/G 1.1 ratio Ratio) eGFR AA (test code=eGFR >60 mL/min/1.73 m2 eGFR (estimated AA) Glomerular Filtration Rate) is an estimated value, calculated from the patient's serum creatinine using the MDRD equation. It is NOT the patient's actual GFR. The eGFR provides a more clinically useful measure of kidney disease than serum creatinine alone.This calculation takes sex and race into account, if the information is provided. If the race is not provided, and the patient is -[place] Citizen, multiply by 1.212. If sex is not provided, and the patient is female, multiply by 0.742. Results for patients <18 years of age have not been validated by the MDRD study and should be interpreted with caution. eGFR Result Interpretation:eGFR > or=60 is in the Normal RangeeGFR < 60 may mean kidney diseaseeGFR < 15 may mean kidney failure Ranges recommended by the National Kidney Foundation, http://nkdep.nih.gov Comprehensive Metabolic [id number] 12:16:31 Test Item Value Reference Range Comments Sodium Level (test 130.0 mmol/L 135.0-145.0 code=Sodium Level) Potassium Level (test 4.4 mmol/L 3.5-5.1 code=Potassium Level) Chloride Level (test 93 mmol/L 98-105 code=Chloride Level) CO2 (test code=CO2) 26 mmol/L 22-29 Anion Gap (test 11 mmol/L 7-16 code=Anion Gap) BUN (test code=BUN) 18.50 mg/dL 8.00-23.00 Creatinine Level (test 0.90 mg/dL 0.50-0.90 code=Creatinine Level) BUN/Creat Ratio (test 21 code=BUN/Creat Ratio) Glucose Level (test 89 mg/dL 70-115 code=Glucose Level) Calcium Level (test 8.8 mg/dL 8.3-10.5 code=Calcium Level) Alk Phos (test code=Alk 177 U/L 35-104 Phos) Bilirubin Total (test 0.8 mg/dL 0.1-0.9 code=Bilirubin Total) Albumin Level (test 3.6 g/dL 3.5-5.2 code=Albumin Level) Protein Total (test 7.0 g/dL 6.4-8.3 code=Protein Total) ALT (test code=ALT) 20 U/L 1-33 AST (test code=AST) 32 U/L 1-32 Globulin (test 3.4 g/dL 2.9-3.1 code=Globulin) A/G Ratio (test code=A/G 1.1 ratio Ratio) eGFR AA (test code=eGFR >60 mL/min/1.73 m2 eGFR (estimated AA) Glomerular Filtration Rate) is an estimated value, calculated from the patient's serum creatinine using the MDRD equation. It is NOT the patient's actual GFR. The eGFR provides a more clinically useful measure of kidney disease than serum creatinine alone.This calculation takes sex and race into account, if the information is provided. If the race is not provided, and the patient is -[place] Citizen, multiply by 1.212. If sex is not provided, and the patient is female, multiply by 0.742. Results for patients <18 years of age have not been validated by the MDRD study and should be interpreted with caution. eGFR Result Interpretation:eGFR > or=60 is in the Normal RangeeGFR < 60 may mean kidney diseaseeGFR < 15 may mean kidney failure Ranges recommended by the National Kidney Foundation, http://nkdep.nih.gov eGFR Non-AA (test 58.95 mL/min/1.73 eGFR (estimated code=eGFR Non-AA) m2 Glomerular Filtration Rate) is an estimated value, calculated from the patient's serum creatinine using the MDRD equation. It is NOT the patient's actual GFR. The eGFR provides a more clinically useful measure of kidney disease than serum creatinine alone.This calculation takes sex and race into account, if the information is provided. If the race is not provided, and the patient is -[place] Citizen, multiply by 1.212. If sex is not provided, and the patient is female, multiply by 0.742. Results for patients <18 years of age have not been validated by the MDRD study and should be interpreted with caution. eGFR Result Interpretation:eGFR > or=60 is in the Normal RangeeGFR < 60 may mean kidney diseaseeGFR < 15 may mean kidney failure Ranges recommended by the National Kidney Foundation, http://nkdep.nih.gov Creatine Kinase MB [id number] 12:15:13 Test Item Value Reference Range Comments CKMB (test code=CKMB) 3.0 ng/mL 0.0-2.8 Pro B Natriuretic [id number] 12:15:13 Test Item Value Reference Range Comments NT-proBNP (test code=NT-proBNP) 2419 pg/mL 0-449 Troponin [id number] 12:15:13 Test Item Value Reference Range Comments Troponin-T (test <0.010 ng/mL 0.000-0.009 Within Normal RangeThe 99th code=Troponin-T) percentile URL for the assay is< 0.01ng/ml. A rise and fall in JOSE with at least one value above the 99th percentile with clinical evidence of myocardial ischemia would support the diagnosis of AMI. A delta of at least 20% is recommended to access acute changes in results above the 99th percentile in serial measurements. Stable JOSE levels (<20% delta) above the 99th percentile URL would support a diagnosis of chronic myocardial injury.<0.01 ng/ml - No evidence of Myocardial Injury > or equal to 0.01 ng/ml - Suspected Myocardial Injury Creatine Kinase MB [id number] 12:15:13 Test Item Value Reference Range Comments CKMB (test code=CKMB) 3.0 ng/mL 0.0-2.8 CKMB % (test code=CKMB %) 3.4 % 0.0-3.4 XR Chest 1 View [id number] 12:13:00Patient: ELISABETH CONDON Date/Time12/20/2018 11:27 CDTReason for ExamChest painReportEXAMINATION: XR Chest 1 View Frontal.LOCATION : R16.HISTORY:Chest pain.COMPARISON: Chest x-ray 12/31/2011.FINDINGS:Examination is limited due to portable technique, patient body habitus and low lung volumes.Cardiac silhouette/Mediastinal contour: Prominence of cardiac silhouette. Atherosclerotic calcification of aortic arch.Lungs: No focal consolidation. No large pleural effusion.Osseous Structures: Degenerative changes of thoracic spine. Chronic appearing fracture deformity involving right proximal humerus, partially imaged.IMPRESSION:No focal consolidation. Final Dictated by: MD Ragsdale Ankitkumar NDictated DT/TM: 12/20/2018 12: 11 pmSigned by: MD Ragsdale Ankitkumar NSigned (Electronic Signature): 2018 12:13 pmComplete Blood Count with [id number] 11:56:46 Test Item Value Reference Range Comments WBC (test code=WBC) 5.6 x10 4.4-10.5 RBC (test code=RBC) 3.14 x10 3.75-5.20 Hgb (test code=Hgb) 11.2 g/dL 12.2-14.8 MCV (test code=MCV) 101.30 fL 80.00-100.00 Hct (test code=Hct) 31.8 % 36.5-44.4 MCHC (test code=MCHC) 35.20 g/dL 32.00-37.50 RDW CV (test code=RDW CV) 11.5 % 11.5-14.5 MCH (test code=MCH) 35.7 pg 27.0-32.5 Platelets (test 127.0 x10 140.0-440.0 code=Platelets) MPV (test code=MPV) 9.6 fL Slide Review (test code=Slide Auto Auto Result created by Review) GL_SJM_SLIDE_REV_AUTO nRBC (test code=nRBC) 0 NRBC Abs (test code=NRBC Abs) 0.00 x10 IPF (test code=IPF) 0 % Automated [id number] 11:56:46 Test Item Value Reference Range Comments Neutro Auto (test code=Neutro Auto) 61.0 % 36.0-70.0 Lymph Auto (test code=Lymph Auto) 24.6 % 12.0-44.0 [place] Auto (test code=[place] Auto) 8.9 % 0.0-11.0 Eos, Auto (test code=Eos, Auto) 4.8 % 0.0-7.0 Basophil Auto (test code=Basophil Auto) 0.5 % 0.0-2.0 Neutro Absolute (test code=Neutro Absolute) 3.4 x10 1.6-7.4 Lymph Absolute (test code=Lymph Absolute) 1.38 x10 .50-4.60 [place] Absolute (test code=[place] Absolute) .50 x10 .00-1.20 Eos Absolute (test code=Eos Absolute) 0.27 x10 0.00-0.74 Baso Absolute (test code=Baso Absolute) 0.03 x10 0.00-0.21 IG [id number] 11:56:46 Test Item Value Reference Range Comments IG (test code=IG) 0.2 % 0.0-5.0 IG Abs (test code=IG Abs) 0 x10 US Lower Ext Venous Duplex [id number] 11:25:49Patient: ELISABETH CONDON Date/Time12/20/2018 11: 18 CDTReason for ExamExtremity EdemaReportHISTORY: Lower extremity edema.LOCATION: R16.COMPARISON: Right lower extremity ultrasound 12/16/2018.EXAM : US Lower Ext Venous Duplex Right.FINDINGS:Sonographic evaluation of RIGHT lower extremity was performed from the common femoral veins to the poplitealtrifurcations utilizing grayscale, pulse Doppler, and color flow imaging. The veins are normally compressible. There is normal respiratory phasicity and augmentation demonstrated. Color flow is demonstrated. The visualized proximal calf veins demonstrate flow on color imaging.Scattered subcutaneous edema noted.IMPRESSION:No evidence of deep venous thrombus in the visualized portions of the RIGHT lower extremity. Final Dictated by: MD Ragsdale Ankitkumar NDictated DT/TM: 12/20/2018 11:23 amSigned by: MD Ragsdale Ankitkumar NSigned (Electronic Signature): 12/20/2018 11:25 amUS Lower Ext Venous Duplex [id number] 19:02:50Patient: ELISABETH CONDON Date/Time12/16/2018 18:43 CDTReason for ExamExtremity EdemaReportExam: Right upper extremity venous doppler.Location : [id number]: EdemaTechnique: Polanco scale, color Doppler and spectral analysis of the internal jugular, subclavian, axillary, basilic, cephalic, brachial and forearm veins of the right upper extremity was performed.Findings:There is normal flow, phasicity, compressibility and augmentation of the deep venous system of the right upper extremity. No DVT is found in the right arm.Impression :Negative for DVT. Final Dictated by: MD Aguilera Francesco MDictated DT/TM: 12/16/2018 7:02 pmSigned by:MD Aguilera Francesco MSigned ( Electronic Signature): 12/16/2018 7:02 pmComprehensive Metabolic [id number] 17:57:14 Test Item Value Reference Range Comments Sodium Level (test code=Sodium Level) 129.0 mmol/L 135.0-145.0 Potassium Level (test code=Potassium Level) 4.5 mmol/L 3.5-5.1 Chloride Level (test code=Chloride Level) 93 mmol/L 98-105 CO2 (test code=CO2) 28 mmol/L 22-29 Anion Gap (test code=Anion Gap) 8 mmol/L 7-16 BUN (test code=BUN) 15.00 mg/dL 8.00-23.00 Creatinine Level (test code=Creatinine Level) 0.80 mg/dL 0.50-0.90 BUN/Creat Ratio (test code=BUN/Creat Ratio) 19 Glucose Level (test code=Glucose Level) 103 mg/dL 70-115 Calcium Level (test code=Calcium Level) 8.1 mg/dL 8.3-10.5 Alk Phos (test code=Alk Phos) 164 U/L 35-104 Bilirubin Total (test code=Bilirubin Total) 0.8 mg/dL 0.1-0.9 Albumin Level (test code=Albumin Level) 3.4 g/dL 3.5-5.2 Protein Total (test code=Protein Total) 6.4 g/dL 6.4-8.3 ALT (test code=ALT) 21 U/L 1-33 AST (test code=AST) 34 U/L 1-32 Globulin (test code=Globulin) 3.0 g/dL 2.9-3.1 A/G Ratio (test code=A/G Ratio) 1.1 ratio Comprehensive Metabolic [id number] 17:57:14 Test Item Value Reference Range Comments Sodium Level (test 129.0 mmol/L 135.0-145.0 code=Sodium Level) Potassium Level (test 4.5 mmol/L 3.5-5.1 code=Potassium Level) Chloride Level (test 93 mmol/L 98-105 code=Chloride Level) CO2 (test code=CO2) 28 mmol/L 22-29 Anion Gap (test 8 mmol/L 7-16 code=Anion Gap) BUN (test code=BUN) 15.00 mg/dL 8.00-23.00 Creatinine Level (test 0.80 mg/dL 0.50-0.90 code=Creatinine Level) BUN/Creat Ratio (test 19 code=BUN/Creat Ratio) Glucose Level (test 103 mg/dL 70-115 code=Glucose Level) Calcium Level (test 8.1 mg/dL 8.3-10.5 code=Calcium Level) Alk Phos (test code=Alk 164 U/L 35-104 Phos) Bilirubin Total (test 0.8 mg/dL 0.1-0.9 code=Bilirubin Total) Albumin Level (test 3.4 g/dL 3.5-5.2 code=Albumin Level) Protein Total (test 6.4 g/dL 6.4-8.3 code=Protein Total) ALT (test code=ALT) 21 U/L 1-33 AST (test code=AST) 34 U/L 1-32 Globulin (test 3.0 g/dL 2.9-3.1 code=Globulin) A/G Ratio (test code=A/G 1.1 ratio Ratio) eGFR AA (test code=eGFR >60 mL/min/1.73 m2 eGFR (estimated AA) Glomerular Filtration Rate) is an estimated value, calculated from the patient's serum creatinine using the MDRD equation. It is NOT the patient's actual GFR. The eGFR provides a more clinically useful measure of kidney disease than serum creatinine alone.This calculation takes sex and race into account, if the information is provided. If the race is not provided, and the patient is -[place] Citizen, multiply by 1.212. If sex is not provided, and the patient is female, multiply by 0.742. Results for patients <18 years of age have not been validated by the MDRD study and should be interpreted with caution. eGFR Result Interpretation:eGFR > or=60 is in the Normal RangeeGFR < 60 may mean kidney diseaseeGFR < 15 may mean kidney failure Ranges recommended by the National Kidney Foundation, http://nkdep.nih.gov Comprehensive Metabolic [id number] 17:57:14 Test Item Value Reference Range Comments Sodium Level (test 129.0 mmol/L 135.0-145.0 code=Sodium Level) Potassium Level (test 4.5 mmol/L 3.5-5.1 code=Potassium Level) Chloride Level (test 93 mmol/L 98-105 code=Chloride Level) CO2 (test code=CO2) 28 mmol/L 22-29 Anion Gap (test 8 mmol/L 7-16 code=Anion Gap) BUN (test code=BUN) 15.00 mg/dL 8.00-23.00 Creatinine Level (test 0.80 mg/dL 0.50-0.90 code=Creatinine Level) BUN/Creat Ratio (test 19 code=BUN/Creat Ratio) Glucose Level (test 103 mg/dL 70-115 code=Glucose Level) Calcium Level (test 8.1 mg/dL 8.3-10.5 code=Calcium Level) Alk Phos (test code=Alk 164 U/L 35-104 Phos) Bilirubin Total (test 0.8 mg/dL 0.1-0.9 code=Bilirubin Total) Albumin Level (test 3.4 g/dL 3.5-5.2 code=Albumin Level) Protein Total (test 6.4 g/dL 6.4-8.3 code=Protein Total) ALT (test code=ALT) 21 U/L 1-33 AST (test code=AST) 34 U/L 1-32 Globulin (test 3.0 g/dL 2.9-3.1 code=Globulin) A/G Ratio (test code=A/G 1.1 ratio Ratio) eGFR AA (test code=eGFR >60 mL/min/1.73 m2 eGFR (estimated AA) Glomerular Filtration Rate) is an estimated value, calculated from the patient's serum creatinine using the MDRD equation. It is NOT the patient's actual GFR. The eGFR provides a more clinically useful measure of kidney disease than serum creatinine alone.This calculation takes sex and race into account, if the information is provided. If the race is not provided, and the patient is -[place] Citizen, multiply by 1.212. If sex is not provided, and the patient is female, multiply by 0.742. Results for patients <18 years of age have not been validated by the MDRD study and should be interpreted with caution. eGFR Result Interpretation:eGFR > or=60 is in the Normal RangeeGFR < 60 may mean kidney diseaseeGFR < 15 may mean kidney failure Ranges recommended by the National Kidney Foundation, http://nkdep.nih.gov eGFR Non-AA (test >60.00 mL/min/1.73 eGFR (estimated code=eGFR Non-AA) m2 Glomerular Filtration Rate) is an estimated value, calculated from the patient's serum creatinine using the MDRD equation. It is NOT the patient's actual GFR. The eGFR provides a more clinically useful measure of kidney disease than serum creatinine alone.This calculation takes sex and race into account, if the information is provided. If the race is not provided, and the patient is -[place] Citizen, multiply by 1.212. If sex is not provided, and the patient is female, multiply by 0.742. Results for patients <18 years of age have not been validated by the MDRD study and should be interpreted with caution. eGFR Result Interpretation:eGFR > or=60 is in the Normal RangeeGFR < 60 may mean kidney diseaseeGFR < 15 may mean kidney failure Ranges recommended by the National Kidney Foundation, http://nkdep.nih.gov Complete Blood Count with [id number] 17:05:05 Test Item Value Reference Range Comments WBC (test code=WBC) 5.7 x10 4.4-10.5 RBC (test code=RBC) 2.98 x10 3.75-5.20 Hgb (test code=Hgb) 10.7 g/dL 12.2-14.8 MCV (test code=MCV) 101.70 fL 80.00-100.00 Hct (test code=Hct) 30.3 % 36.5-44.4 MCHC (test code=MCHC) 35.30 g/dL 32.00-37.50 RDW CV (test code=RDW CV) 11.7 % 11.5-14.5 MCH (test code=MCH) 35.9 pg 27.0-32.5 Platelets (test 102.0 x10 140.0-440.0 code=Platelets) MPV (test code=MPV) 10.5 fL Slide Review (test code=Slide Auto Auto Result created by Review) GL_SJM_SLIDE_REV_AUTO nRBC (test code=nRBC) 0 NRBC Abs (test code=NRBC Abs) 0.00 x10 IPF (test code=IPF) 0 % Automated [id number] 17:05:05 Test Item Value Reference Range Comments Neutro Auto (test code=Neutro Auto) 64.7 % 36.0-70.0 Lymph Auto (test code=Lymph Auto) 19.7 % 12.0-44.0 [place] Auto (test code=[place] Auto) 10.6 % 0.0-11.0 Eos, Auto (test code=Eos, Auto) 4.5 % 0.0-7.0 Basophil Auto (test code=Basophil Auto) 0.3 % 0.0-2.0 Neutro Absolute (test code=Neutro Absolute) 3.7 x10 1.6-7.4 Lymph Absolute (test code=Lymph Absolute) 1.13 x10 .50-4.60 [place] Absolute (test code=[place] Absolute) .61 x10 .00-1.20 Eos Absolute (test code=Eos Absolute) 0.26 x10 0.00-0.74 Baso Absolute (test code=Baso Absolute) 0.02 x10 0.00-0.21 IG [id number] 17:05:05 Test Item Value Reference Range Comments IG (test code=IG) 0.2 % 0.0-5.0 IG Abs (test code=IG Abs) 0 x10 Uric [id number] 17:55:00 Test Item Value Reference Range Comments Uric Acid (test code=UA) 5.2 mg/dL 2.4-5.7 Comprehensive Metabolic [id number] 17:55:00 Test Item Value Reference Range Comments Sodium (test code=NA) 137 mmol/L 135-145 Potassium (test code=K) 4.2 mmol/L 3.5-5.1 Chloride (test code=CL) 97 mmol/L 98-105 Carbon Dioxide (test 26 mmol/L 22-29 code=CO2) Glucose (test code=GLU) 80 mg/dL 70-115 Blood Urea Nitrogen 15 mg/dL 8-23 (test code=BUN) Creatinine (test 0.8 mg/dL 0.5-0.9 code=CREAT) Calcium (test code=CA) 8.9 mg/dL 8.3-10.5 Prot Total (test 6.5 g/dL 6.4-8.3 code=TP) Albumin (test code=ALB) 3.8 g/dL 3.5-5.2 A/G Ratio (test 1.4 Ratio code=AGRATIO) Globulin (test 2.7 2.9-3.1 code=GLOB) Bili Total (test 0.8 mg/dL 0.1-0.9 code=TBIL) Alk Phos (test 105 U/L 35-104 code=APHOS) AST (test code=AST) 24 U/L 1-32 ALT (test code=ALT) 13 U/L 1-33 BUN/Creatinine Ratio 18.8 (test code=BCRATIO) Anion Gap (test 14 mmol/L 7-16 code=AGAP) Estimated GFR (test >60 mL/min/1.73m2 eGFR (estimated Glomerular code=GFR) Filtration Rate) is an estimated value,calculated from the patient's serum creatinine using the MDRD equation.It is NOT the patient's actual GFR. The eGFR provides a more clinicallyuseful measure of kidney disease than serum creatinine alone.This calculation takes sex and race into account, if the informationis provided. If the race is not provided, and the patient isAfrican-[place] Citizen, multiply by 1.212. If sex is not provided, and thepatient is female, multiply by 0.742. Results for patients <18 years ofage have not been validated by the MDRD study and should be interpretedwith caution.eGFR Result Interpretation:eGFR > or=60 is in the Normal RangeeGFR < 60 may mean kidney diseaseeGFR < 15 may mean kidney failureRanges recommended by the National Kidney Foundation,http://nkdep.nih .gov CBC with [id number] 17:41:00 Test Item Value Reference Range Comments WBC (test code=WBC) 5.1 K/cumm 4.4-10.5 RBC (test code=RBC) 3.54 M/cumm 3.75-5.20 Hemoglobin (test code=HGB) 12.2 gm/dL 12.2-14.8 Hematocrit (test code=HCT) 36.3 % 36.5-44.4 MCV (test code=MCV) 102.5 fL 80-100 MCH (test code=MCH) 34.4 pg 27.0-32.5 MCHC (test code=MCHC) 33.6 g/dL 32.0-37.5 RDW (test code=RDW) 13.0 % 11.5-14.5 Platelet Count (test code=PLTCT) 119 K/cumm 140-440 MPV (test code=MPV) 11.7 fL Diff Method (test code=DIFFM) Auto Neutrophil (test code=NEUT) 64.2 % 36-70 Lymphocyte (test code=LYMPH) 25.4 % 12-44 Monocyte (test code=MONO) 4.1 % 0-11 Eosinophil (test code=EOS) 6.1 % 0-7 Basophil (test code=BASO) 0.3 % 0-2 Neutro Abs (test code=ANEUT) 3.3 K/cumm 1.6-7.4 Lymph Abs (test code=ALYMPH) 1.3 K/cumm 0.5-4.6 [place] Abs (test code=AMONO) 0.2 K/cumm 0.0-1.2 Eos Abs (test code=AEOS) 0.31 K/cumm 0.00-0.74 Baso Abs (test code=ABASO) 0.0 K/cumm 0.00-0.21 Macrocytosis (test code=MACRO) Slight CBC with [id number] 17:31:00 Test Item Value Reference Range Comments WBC (test code=WBC) 6.3 K/cumm 4.4-10.5 RBC (test code=RBC) 3.61 M/cumm 3.75-5.20 Hemoglobin (test code=HGB) 12.6 gm/dL 12.2-14.8 Hematocrit (test code=HCT) 37.4 % 36.5-44.4 MCV (test code=MCV) 103.4 fL 80-100 MCH (test code=MCH) 34.9 pg 27.0-32.5 MCHC (test code=MCHC) 33.8 g/dL 32.0-37.5 RDW (test code=RDW) 12.3 % 11.5-14.5 Platelet Count (test code=PLTCT) 147 K/cumm 140-440 MPV (test code=MPV) 8.7 fL Diff Method (test code=DIFFM) Auto Neutrophil (test code=NEUT) 61.1 % 36-70 Lymphocyte (test code=LYMPH) 26.7 % 12-44 Monocyte (test code=MONO) 6.8 % 0-11 Eosinophil (test code=EOS) 4.8 % 0-7 Basophil (test code=BASO) 0.7 % 0-2 Neutro Abs (test code=ANEUT) 3.9 K/cumm 1.6-7.4 Lymph Abs (test code=ALYMPH) 1.7 K/cumm 0.5-4.6 [place] Abs (test code=AMONO) 0.4 K/cumm 0.0-1.2 Eos Abs (test code=AEOS) 0.30 K/cumm 0.00-0.74 Baso Abs (test code=ABASO) 0.0 K/cumm 0.00-0.21 Macrocytosis (test code=MACRO) Slight Lipid [id number] 17:25:00 Test Item Value Reference Range Comments Cholesterol (test 146 mg/dL 0-200 code=CHOL) Triglycerides (test 97 mg/dL 9-200 code=TRIG) HDL (test code=HDL) 71 mg/dL 50-60 Chol/HDL (test 2.1 Ratio 0.0-4.4 code=CHOLPHDL) LDL, Calculated (test 56 mg/dL 0-130 (NOTE)RISK OF HEART code=LDLC) DISEASEPublished by [place] Citizen Heart AssociationAnalyte Optimal Boderline Increased RiskCHOL <200 200-239 >240TRIG <150 150-199 >200HDL Male: >60 <40HDL Female: >60 <50LDL <100 130-159 >160LDL NEAR OPTIMAL IS 100-129 VLDL (test code=VLDL) 19 mg/dL 5-40 LDL/HDL (test code=LDLPHDL) 1 Comprehensive Metabolic [id number] 17:25:00 Test Item Value Reference Range Comments Sodium (test code=NA) 132 mmol/L 135-145 Potassium (test code=K) 4.2 mmol/L 3.5-5.1 Chloride (test code=CL) 93 mmol/L 98-105 Carbon Dioxide (test 28 mmol/L 22-29 code=CO2) Glucose (test code=GLU) 73 mg/dL 70-115 Blood Urea Nitrogen 17 mg/dL 8-23 (test code=BUN) Creatinine (test 0.9 mg/dL 0.5-0.9 code=CREAT) Calcium (test code=CA) 9.2 mg/dL 8.3-10.5 Prot Total (test 7.0 g/dL 6.4-8.3 code=TP) Albumin (test code=ALB) 4.2 g/dL 3.5-5.2 A/G Ratio (test 1.5 Ratio code=AGRATIO) Globulin (test 2.8 2.9-3.1 code=GLOB) Bili Total (test 0.7 mg/dL 0.1-0.9 code=TBIL) Alk Phos (test 110 U/L 35-104 code=APHOS) AST (test code=AST) 30 U/L 1-32 ALT (test code=ALT) 15 U/L 1-33 BUN/Creatinine Ratio 18.9 (test code=BCRATIO) Anion Gap (test 11 mmol/L 7-16 code=AGAP) Estimated GFR (test >60 mL/min/1.73m2 eGFR (estimated Glomerular code=GFR) Filtration Rate) is an estimated value,calculated from the patient's serum creatinine using the MDRD equation.It is NOT the patient's actual GFR. The eGFR provides a more clinicallyuseful measure of kidney disease than serum creatinine alone.This calculation takes sex and race into account, if the informationis provided. If the race is not provided, and the patient isAfrican-[place] Citizen, multiply by 1.212. If sex is not provided, and thepatient is female, multiply by 0.742. Results for patients <18 years ofage have not been validated by the MDRD study and should be interpretedwith caution.eGFR Result Interpretation:eGFR > or=60 is in the Normal RangeeGFR < 60 may mean kidney diseaseeGFR < 15 may mean kidney failureRanges recommended by the National Kidney Foundation,http://nkdep.nih .gov TIBC and [id number] 17:25:00 Test Item Value Reference Range Comments Iron (test code=FE) 127 ug/dL 37-145 UIBC (test code=UIBC) 191 ug/dL 112-346 TIBC (test code=TIBC) 318 ug/dL 149-491 % Saturation (test code=PSAT) 40 % 20-50 Urinalysis [id number] 13:08:00 Test Item Value Reference Range Comments Color (test code=COLOR) Yellow Yellow,Straw,Pl yellow Clarity (test code=CLAR) Sl Cloudy Clear Specific [place] (test code=SPGR) 1.010 1.001-1.035 pH (test code=PH) 7.0 5.0-9.0 Ketone (test code=KET) Negative mg/dL Negative Glucose (test code=GLUCUR) Negative mg/dL Negative Protein (test code=PROT) 25 mg/dL Negative Bilirubin (test code=BILI) Negative mg/dL Negative Occult Blood (test code=UDOB) Moderate Negative Urobilinogen (test code=UROB) 0.2 mg/dL 0.2-1.0 Nitrite (test code=NIT) Positive Negative Leuk Esterase (test code=LEUK) Large Negative Micros Exam (test code=MEXAM) Indicated Epithelial Cells (test code=EPI) 6-9 /LPF 0-30 WBC, Urine (test code=UWBC) 31-40 /HPF 0-5 RBC, Urine (test code=URBC) 4-5 /HPF 0-5 Bacteria (test code=BACT) Many /HPF Free T4 (Free Thyroxine)2016-11-11 20:38:00 Test Item Value Reference Range Comments T4, Free (test code=FT4) 1.05 ng/dL 0.930-1.700 Thyroid Stimulating Hormone (TSH)2016-11-11 20:38:00 Test Item Value Reference Range Comments TSH (test code=TSH) 1.48 mIU/mL 0.270-4.200 Vitamin [id number] 18:02:00 Test Item Value Reference Range Comments Vitamin B 12 (test code=VITB12) 1140 pg/mL 211-946 [id number] 18:02:00 Test Item Value Reference Range Comments Folate (test code=FOL) >20.0 ng/mL Normal 3.0-20.0 ng/mLBorderline 2.2-3.0 ng/mLDeficient < 2.2 ng/mL Comprehensive Metabolic [id number] 17:36:00 Test Item Value Reference Range Comments Sodium (test code=NA) 137 mmol/L 135-145 Potassium (test code=K) 4.8 mmol/L 3.5-5.1 Chloride (test code=CL) 97 mmol/L 98-105 Carbon Dioxide (test 27 mmol/L 22-29 code=CO2) Glucose (test code=GLU) 58 mg/dL 70-115 Blood Urea Nitrogen (test 17 mg/dL 8-23 code=BUN) Creatinine (test 1.0 mg/dL 0.5-0.9 code=CREAT) Calcium (test code=CA) 9.2 mg/dL 8.3-10.5 Prot Total (test code=TP) 6.9 g/dL 6.4-8.3 Albumin (test code=ALB) 3.9 g/dL 3.5-5.2 A/G Ratio (test 1.3 Ratio code=AGRATIO) Globulin (test code=GLOB) 3.0 2.9-3.1 Bili Total (test 0.6 mg/dL 0.1-0.9 code=TBIL) Alk Phos (test 95 U/L 35-104 code=APHOS) AST (test code=AST) 27 U/L 1-32 ALT (test code=ALT) 14 U/L 1-33 BUN/Creatinine Ratio 17.0 (test code=BCRATIO) Anion Gap (test 13 mmol/L 7-16 code=AGAP) Estimated GFR (test 56 mL/min/1.73m2 eGFR (estimated Glomerular code=GFR) Filtration Rate) is an estimated value,calculated from the patient's serum creatinine using the MDRD equation.It is NOT the patient's actual GFR. The eGFR provides a more clinicallyuseful measure of kidney disease than serum creatinine alone.This calculation takes sex and race into account, if the informationis provided. If the race is not provided, and the patient isAfrican-[place] Citizen, multiply by 1.212. If sex is not provided, and thepatient is female, multiply by 0.742. Results for patients <18 years ofage have not been validated by the MDRD study and should be interpretedwith caution.eGFR Result Interpretation:eGFR > or=60 is in the Normal RangeeGFR < 60 may mean kidney diseaseeGFR < 15 may mean kidney failureRanges recommended by the National Kidney Foundation,http://nkdep.nih .gov Lipid [id number] 17:36:00 Test Item Value Reference Range Comments Cholesterol (test 156 mg/dL 0-200 code=CHOL) Triglycerides (test 74 mg/dL 9-200 code=TRIG) HDL (test code=HDL) 71 mg/dL 50-60 Chol/HDL (test 2.2 Ratio 0.0-4.4 code=CHOLPHDL) LDL, Calculated (test 70 mg/dL 0-130 (NOTE)RISK OF HEART code=LDLC) DISEASEPublished by [place] Citizen Heart AssociationAnalyte Optimal Boderline Increased RiskCHOL <200 200-239 >240TRIG <150 150-199 >200HDL Male: >60 <40HDL Female: >60 <50LDL <100 130-159 >160LDL NEAR OPTIMAL IS 100-129 VLDL (test code=VLDL) 15 mg/dL 5-40 LDL/HDL (test code=LDLPHDL) 1 Uric [id number] 17:36:00 Test Item Value Reference Range Comments Uric Acid (test code=UA) 4.8 mg/dL 2.4-5.7 CBC with [id number] 17:23:00 Test Item Value Reference Range Comments WBC (test code=WBC) 5.2 K/cumm 4.4-10.5 RBC (test code=RBC) 3.56 M/cumm 3.75-5.20 Hemoglobin (test code=HGB) 11.8 gm/dL 12.2-14.8 Hematocrit (test code=HCT) 35.4 % 36.5-44.4 MCV (test code=MCV) 99.4 fL 80-100 MCH (test code=MCH) 33.3 pg 27.0-32.5 MCHC (test code=MCHC) 33.5 g/dL 32.0-37.5 RDW (test code=RDW) 13.4 % 11.5-14.5 Platelet Count (test code=PLTCT) 125 K/cumm 140-440 MPV (test code=MPV) 11.3 fL Diff Method (test code=DIFFM) Auto Neutrophil (test code=NEUT) 55.4 % 36-70 Lymphocyte (test code=LYMPH) 32.4 % 12-44 Monocyte (test code=MONO) 6.0 % 0-11 Eosinophil (test code=EOS) 5.7 % 0-7 Basophil (test code=BASO) 0.5 % 0-2 Neutro Abs (test code=ANEUT) 2.9 K/cumm 1.6-7.4 Lymph Abs (test code=ALYMPH) 1.7 K/cumm 0.5-4.6 [place] Abs (test code=AMONO) 0.3 K/cumm 0.0-1.2 Eos Abs (test code=AEOS) 0.30 K/cumm 0.00-0.74 Baso Abs (test code=ABASO) 0.0 K/cumm 0.00-0.21
[2019-07-11] MEDS ORDERED: ONDANSETRON 4 MG/2 ML VIAL ONE (03:34)
[2019-07-11] MEDS ORDERED: NA CHLORIDE 0.9% 500 ML ONE ×2 (03:42→13:33)
[2019-07-11 03:47] LABS: Absolute Lymphocytes (CBC) 1.3 K/uL (0.7-4.9); Basophils % 1.1 % (0-1.3); Hematocrit 22.5 % (36.0-45.0); Lymphocytes % 22.4 % (15.3-44.8); MPV 9.8 fL (7.6-11.3); RBC Red Blood Cell Count 2.12 M/uL (3.86-4.86)
[2019-07-11 03:48] LABS: Protime INR 2.62
[2019-07-11 04:01] LABS: Albumin 1.8 g/dL (3.4-5.0); Bilirubin Direct 0.3 mg/dL (0-0.2); Magnesium 1.9 mg/dL (1.8-2.4); Potassium 3.8 mmol/L (3.5-5.1); Protein, Total 4.4 g/dL (6.4-8.2); Troponin (Emerg Dept Use Only) 0.06 ng/mL (0.0-0.045)
[2019-07-11 05:09] LABS: Blood Morphology Comment NOTED (NOT SEEN); Macrocytosis 1+; Platelet Estimate ADEQ; Urine White Blood Cell Casts OK
[2019-07-11] MEDS ORDERED: LIDOCAINE VISCOUS 2% SOLN 15 ML UDC ONE (05:16)
[2019-07-11] MEDS ORDERED: PANTOPRAZOLE 40 MG INJ ONE ×2 (05:52→05:53)
[2019-07-11] MEDS ORDERED: NA CHLORIDE 0.9% 250 ML ONE ×2 (05:53→09:54)
--- NOTE | 2019-07-11 05:59 | EKG ---
Test Date: 2019-07-11 Test Time: 03:35:05 [employer]: AXEL MEASUREMENT RESULTS: Intervals: Rate: 42 DC: 246 QRSD: 88 QT: 526 QTc: 439 [place]: P: 22 DC: 246 QRS: 38 T: 67 INTERPRETIVE STATEMENTS: Marked sinus bradycardia with 1st degree AV block T wave abnormality, consider anterior ischemia Abnormal ECG No previous ECG available for comparison Electronically Signed On 07-11-19 05:58:43 ASBESTOS COVERER by Rony Bae
--- NOTE | 2019-07-11 07:13 | ER ---
Nurse's Notes [facility] Name: Lo Hamm Age: 88 yrs Sex: Female : 1930 Arrival Date: 07/11/2019 Time: 02:53 Bed 5 Private MD: Diagnosis: acute GI bleed;CHF Presentation: 07/11 03:00 Presenting complaint: Patient states: she woke up from sleeping and had an episode of aa1 vomiting x 1 which had a coffee ground appearance. Pt states, "I didn't feel bad so I don't know what happened." Reports she had red beans for dinner last night. Denies pain. Transition of care: patient was not received from another setting of care. Onset of symptoms was July 11, 2019. Risk Assessment: Do you want to hurt yourself or someone else? Patient reports no desire to harm self or others. Initial Sepsis Screen: Does the patient meet any 2 criteria? No. Patient's initial sepsis screen is negative. Does the patient have a suspected source of infection? No. Patient's initial sepsis screen is negative. Care prior to arrival: Glucose check: 118. 03:00 Method Of Arrival: EMS: [facility] aa1 03:00 Acuity: PATRIZIA 3 aa1 12:30 Acuity: PATRIZIA 2 ph Triage Assessment: 03:04 General: Appears in no apparent distress. comfortable, Behavior is calm, cooperative, aa1 appropriate for age. Pain: Denies pain. Historical: - Allergies: 03:04 meloxicam; aa1 03:04 Keflex; aa1 - PMHx: 03:04 Rheumatoid Arthritis; Gout; Myocardial infarction; Hyperlipidemia; Hypertension; Atrial aa1 Fib; CHF; Gastric Reflux; - Immunization history:: Flu vaccine is up to date. - Social history:: Smoking status: Patient/guardian denies using tobacco. - Ebola Screening: : No symptoms or risks identified at this time. - Family history:: not pertinent. - Hospitalizations: : No recent hospitalization is reported. Screenin:30 Abuse screen: Denies threats or abuse. Denies injuries from another. Nutritional cc3 screening: No deficits noted. Tuberculosis screening: No symptoms or risk factors identified. Fall Risk Ambulatory Aid- None/Bed Rest/Nurse Assist (0 pts). Gait- Normal/Bed Rest/Wheelchair (0 pts) Mental Status- Oriented to own ability (0 pts). Assessment: 03:29 General: Appears in no apparent distress. uncomfortable, Behavior is calm, cooperative, cc3 appropriate for age. Pain: Denies pain. Neuro: Level of Consciousness is awake, alert, obeys commands, Oriented to person, place, time, situation, Appropriate for age. Cardiovascular: Denies chest pain, lightheadedness, shortness of breath, Heart tones S1 S2 present Capillary refill < 3 seconds in bilateral fingers Patient's skin is warm and dry. Respiratory: Airway is patent Respiratory effort is even, unlabored, Respiratory pattern is regular, symmetrical, Breath sounds are clear bilaterally. GI: Abdomen is round obese, Bowel sounds present X 4 quads. Abd is soft and non tender X 4 quads. Reports vomiting, since last night coffee ground. : No signs and/or symptoms were reported regarding the genitourinary system. EENT: No signs and/or symptoms were reported regarding the EENT system. Derm: Skin is fragile, is thin, Bruising that is dark purple, on bilateral arms. Musculoskeletal: Circulation, motion, and sensation intact. Range of motion: intact in all extremities. 04:50 Reassessment: Patient appears in no apparent distress at this time. Patient and/or cc3 family updated on plan of care and expected duration. Pain level reassessed. Patient is alert, oriented x 3, equal unlabored respirations, skin warm/dry/pink. Patient taken to CT scan department by bed by the tool grinding technician. Patient denies pain at this time. Patient states feeling better. Patient states symptoms have improved. 05:11 Reassessment: Patient appears in no apparent distress at this time. Patient and/or cc3 family updated on plan of care and expected duration. Pain level reassessed. Patient is alert, oriented x 3, equal unlabored respirations, skin warm/dry/pink. Patient came back from CT scan department, awaiting result. 06:15 Reassessment: Patient appears in no apparent distress at this time. Patient and/or cc3 family updated on plan of care and expected duration. Pain level reassessed. Patient is alert, oriented x 3, equal unlabored respirations, skin warm/dry/pink. Patient denies pain at this time. Patient states feeling better. 07:19 Reassessment: Patient appears in no apparent distress at this time. Patient and/or tw2 family updated on plan of care and expected duration. Pain level reassessed. Patient is alert, oriented x 3, equal unlabored respirations, skin warm/dry/pink. pt resting quietly at this time, daughter at bedside report this facility is not in her network and she wants to be transferred, provider notified. 08:25 Reassessment: Patient appears in no apparent distress at this time. Patient and/or tw2 family updated on plan of care and expected duration. Pain level reassessed. Patient is alert, oriented x 3, equal unlabored respirations, skin warm/dry/pink. 09:57 Reassessment: Patient appears in no apparent distress at this time. Patient and/or tw2 family updated on plan of care and expected duration. Pain level reassessed. 10:11 Reassessment: pts daughter refused to sign transfer form after report called to SUGEY Richards tw2 at [facility], pts daughter states "it wont be covered by insurance, she cant have a large bill she cant pay", explained the medical necessity for emergency care. 10:49 Reassessment: Patient appears in no apparent distress at this time. Patient and/or tw2 family updated on plan of care and expected duration. Pain level reassessed. Patient is alert, oriented x 3, equal unlabored respirations, skin warm/dry/pink. 11:31 Reassessment: Patient appears in no apparent distress at this time. Patient and/or tw2 family updated on plan of care and expected duration. Pain level reassessed. 13:11 Reassessment: Patient appears in no apparent distress at this time. Patient and/or tw2 family updated on plan of care and expected duration. Pain level reassessed. Patient is alert, oriented x 3, equal unlabored respirations, skin warm/dry/pink. 13:32 Reassessment: spoke with SUGEY Richards at [facility] as to need for pt to be tw2 transferred as she was not accepted anywhere else, also updated on pts condition and need for 2 units of PRBC's at this time, consents signed by pts daughter, blood ordered from blood bank at this time, SUGEY Claybarratte operator nurse looking for 3rd line at this time. 13:49 Reassessment: pt with large copious amount black tarry stool, pt cleaned, linens iw changed, pt appears pale, lethargic. 14:15 Reassessment: SEE BLOOD TRANSFUSION RECORD. tw2 14:30 Reassessment: Dr. Norton informed pts daughter at bedside of the change in pts tw2 condition and the need for life flight at this time, pts daughter states "i hate to say this but do you know if that will be covered by insurance", Dr. Norton explained need for transfer at this time, pts daughter agreeable and transfer form signed. 14:55 Reassessment: Blood transfusion continued with life flight at this time, signed by lewis Frazier RN of [facility]. 15:17 Reassessment: updated report given to SUGEY Richards at [facility] at this time. tw2 Vital Signs: 03:04 BP 126 / 82; Pulse 84; Resp 18; Temp 97.0; Pulse Ox 99% on R/A; Weight 90.72 kg; Height aa1 5 ft. 7 in. (170.18 cm); Pain 0/10; 04:30 BP 105 / 42; Pulse 75; Resp 17 S; Pulse Ox 97% on R/A; Pain 0/10; cc3 05:30 BP 112 / 50; Pulse 72; Resp 14 S; Pulse Ox 97% on R/A; cc3 06:17 BP 108 / 92; Pulse 67; Resp 18 S; Pulse Ox 97% on R/A; cc3 07:19 BP 118 / 36; Pulse 81; Resp 18; Pulse Ox 95% on R/A; tw2 08:24 BP 110 / 40; Pulse 83; Resp 18; Pulse Ox 96% on R/A; tw2 09:15 BP 78 / 50; Pulse 40; Resp 17; Pulse Ox 98% on R/A; tw2 09:56 BP 92 / 38; Pulse 41; Resp 18; Pulse Ox 97% on R/A; tw2 10:48 BP 96 / 32; Pulse 42; Resp 18; Pulse Ox 95% on R/A; tw2 11:30 BP 99 / 34; Pulse 41; Resp 18; Pulse Ox 95% on R/A; tw2 12:18 BP 105 / 29; Pulse 91; Resp 20; Pulse Ox 100% on R/A; ph 12:20 BP 105 / 29; Pulse 90; Resp 21; Pulse Ox 96% on R/A; tw2 13:11 BP 111 / 37; Pulse 88; Resp 22; Pulse Ox 97% on R/A; tw2 03:04 Body Mass Index 31.32 (90.72 kg, 170.18 cm) aa1 12:[address] Norton notified at this time tw2 Dionicio Coma Score: 13:11 Eye Response: to pain(2). Verbal Response: inappropriate words(3). Motor Response: tw2 localizes pain(5). Total: 10. 14:55 Eye Response: to voice(3). Verbal Response: oriented(5). Motor Response: obeys tw2 commands(6). Total: 14. ED Course: 02:53 Patient arrived in ED. ds1 03:01 Rosales Mccormick MD is Attending Physician. wa 03:02 Triage completed. aa1 03:04 Arm band placed on right wrist. aa1 03:29 Supriya Deleon is Primary Nurse. cc3 03:30 Patient has correct armband on for positive identification. Placed in gown. Bed in low cc3 position. Call light in reach. Side rails up X2. laboratory monitor on. Pulse ox on. NIBP on. 03:30 Inserted saline lock: 20 gauge in right antecubital area, using aseptic technique. cc3 Blood collected. 03:50 Notified ED physician of a critical lab result(s). Hgb 7.8 - Dr. Mccormick notified. ak1 05:20 NGT: inserted 16 Fr. via right nare. verified placement of air over stomach, verified cc3 return of gastric contents, Placement verified by X-ray, to intermittent suction. Returned gastric contents. flushed 250 mL water Patient tolerated well. 05:28 CT Abd/Pelvis - Without Contrast In Process Unspecified. EDMS 06:50 Inserted saline lock: 22 gauge in left wrist, using aseptic technique. ds4 07:00 Report given to SUGEY Donald and SUGEY LITTLEJOHN. cc3 07:17 XRAY Chest (1 view) In Process Unspecified. EDMS 07:17 Chest Single View XRAY In Process Unspecified. EDMS 07:18 Shabana Valdivia RN is Primary Nurse. tw2 10:12 Report given to SUGEY Richards at counts include 234 beds at the [facility]# [phone], would like call when pts tw2 leaves our facility. 12:19 CBC with Diff Sent. tw2 12:39 attempted transfer to [facility], pt was denied due to lack of capacity.per bd Cyrus. 12:41 attempted transfer to [facility], pt denied due to not having a available bed. per bd belen. 12:[address] [facility], pt was denied due to no beds available. bd 13:11 Attending Physician role handed off by Rosales Mccormick MD kdr 13:11 Sukhdev Norton MD is Attending Physician. kdr 13:40 Inserted saline lock: 20 gauge in left antecubital area, using aseptic technique. iw 15:14 No provider procedures requiring assistance completed. Patient transferred, IV remains tw2 in place. Administered Medications: 03:30 Drug: NS 0.9% 500 ml Route: IV; Rate: bolus; Site: right antecubital; cc3 04:15 Follow up: Response: No adverse reaction; IV Status: Completed infusion; IV Intake: cc3 500ml 03:35 Drug: Zofran 4 mg Route: IVP; Site: right antecubital; aa1 04:00 Follow up: Response: No adverse reaction; Nausea is decreased cc3 06:00 Drug: ProTONIX 40 mg Route: IVP; Site: right antecubital; cc3 06:14 Follow up: Response: No adverse reaction cc3 06:05 Drug: ProTONIX 8 mg/hr Route: IV; Rate: 25 ml/hr; Site: right antecubital; cc3 14:55 Follow up: IV Status: Infusion continued upon transfer tw2 09:56 Drug: NS 0.9% 250 ml Route: IV; Rate: bolus; Site: left wrist; tw2 11:15 Follow up: Response: No adverse reaction; IV Status: Completed infusion; IV Intake: tw2 250ml 12:20 Drug: NS 0.9% 1000 ml Route: IV; Rate: 75 ml/hr; Site: left wrist; tw2 14:15 Follow up: IV Status: Order to discontinue infusion tw2 Intake: 04:15 IV: 500ml; Total: 500ml. cc3 11:15 IV: 250ml; Total: 750ml. tw2 Output: 15:16 Gastric: 300ml (NGT); Total: 300ml. tw2 Outcome: 07:12 ER care complete, transfer ordered by . wa 15:14 Transferred by helicopter to [facility]. tw2 15:14 critical 15:14 Instructed on the need for transfer. 15:18 Patient left the ED. tw2 Signatures: Dispatcher [employer] EDMS Ana Voss Alissa, RN RN aa1 Sukhdev Norton MD MD [facility] Carmina Raza ds1 Danna Rod RN RN García Olson ds4 Fatou[address]ata [address] RN RN ak1 Leticia Calvert RN RN Shabana Valdivia RN RN tw2 Rosales Mccormick MD MD hi Supriya Deleon cc3 Corrections: (The following items were deleted from the chart) 14:51 13:49 Reassessment: pt with large BM bloody stools at this time, staff at bedside to help clean pt at this time. iw 15:14 15:13 Reassessment: Blood transfusion continued with life flight at this time, signed tw2 by SUGEY Frazier of [facility] tw2
--- NOTE | 2019-07-11 07:13 | EDPHYS ---
Physician Documentation [facility] Name: Lo Hamm Age: 88 yrs Sex: Female : 1930 Arrival Date: 07/11/2019 Time: 02:53 Bed 5 Private MD: ED Physician Sukhdev Norton HPI: 07/11 07:00 This 88 yrs old Female presents to ER via EMS with complaints of Vomiting. wa 07:00 The patient presents to the emergency department with nausea, vomiting. Onset: The wa symptoms/episode began/occurred just prior to arrival. Possible causes: unknown. The symptoms are aggravated by nothing. The symptoms are alleviated by nothing. Associated signs and symptoms: Pertinent positives: abdominal pain, Pertinent negatives: constipation, diarrhea, dysuria, fever. Severity of symptoms: At their worst the symptoms were moderate in the emergency department the symptoms are unchanged. The patient has not experienced similar symptoms in the past. The patient has not recently seen a physician. 88 yo F. sudden onset acute coffee-ground emesis. denies chest pain, dizziness or SOB. Historical: - Allergies: 03:04 meloxicam; aa1 03:04 Keflex; aa1 - PMHx: 03:04 Rheumatoid Arthritis; Gout; Myocardial infarction; Hyperlipidemia; Hypertension; Atrial aa1 Fib; CHF; Gastric Reflux; - Immunization history:: Flu vaccine is up to date. - Social history:: Smoking status: Patient/guardian denies using tobacco. - Ebola Screening: : No symptoms or risks identified at this time. - Family history:: not pertinent. - Hospitalizations: : No recent hospitalization is reported. ROS: 07:02 Constitutional: Negative for fever, chills, and weight loss, Eyes: Negative for injury, wa pain, redness, and discharge, ENT: Negative for injury, pain, and discharge, Neck: Negative for injury, pain, and swelling, Cardiovascular: Negative for chest pain, palpitations, and edema, Respiratory: Negative for shortness of breath, cough, wheezing, and pleuritic chest pain, Back: Negative for injury and pain, : Negative for injury, bleeding, discharge, and swelling, MS/Extremity: Negative for injury and deformity, Skin: Negative for injury, rash, and discoloration, Neuro: Negative for headache, weakness, numbness, tingling, and seizure, Psych: Negative for depression, anxiety, suicide ideation, homicidal ideation, and hallucinations. 07:02 Abdomen/GI: Positive for abdominal pain, nausea and vomiting. 07:02 All other systems are negative. Exam: 07:03 Constitutional: This is a well developed, well nourished patient who is awake, alert, wa and in no acute distress. Head/Face: Normocephalic, atraumatic. Eyes: Pupils equal round and reactive to light, extra-ocular motions intact. Lids and lashes normal. Conjunctiva and sclera are non-icteric and not injected. Cornea within normal limits. Periorbital areas with no swelling, redness, or edema. ENT: Nares patent. No nasal discharge, no septal abnormalities noted. Tympanic membranes are normal and external auditory canals are clear. Oropharynx with no redness, swelling, or masses, exudates, or evidence of obstruction, uvula midline. Mucous membranes moist. Neck: Trachea midline, no thyromegaly or masses palpated, and no cervical lymphadenopathy. Supple, full range of motion without nuchal rigidity, or vertebral point tenderness. No Meningismus. Cardiovascular: Regular rate and rhythm with a normal S1 and S2. No gallops, murmurs, or rubs. Normal PMI, no JVD. No pulse deficits. Respiratory: Lungs have equal breath sounds bilaterally, clear to auscultation and percussion. No rales, rhonchi or wheezes noted. No increased work of breathing, no retractions or nasal flaring. Back: No spinal tenderness. No costovertebral tenderness. Full range of motion. Skin: Warm, dry with normal turgor. Normal color with no rashes, no lesions, and no evidence of cellulitis. 07:03 Abdomen/GI: Inspection: abdomen appears normal, Bowel sounds: normal, Palpation: soft, nontender. Vital Signs: 03:04 BP 126 / 82; Pulse 84; Resp 18; Temp 97.0; Pulse Ox 99% on R/A; Weight 90.72 kg; Height aa1 5 ft. 7 in. (170.18 cm); Pain 0/10; 04:30 BP 105 / 42; Pulse 75; Resp 17 S; Pulse Ox 97% on R/A; Pain 0/10; cc3 05:30 BP 112 / 50; Pulse 72; Resp 14 S; Pulse Ox 97% on R/A; cc3 06:17 BP 108 / 92; Pulse 67; Resp 18 S; Pulse Ox 97% on R/A; cc3 07:19 BP 118 / 36; Pulse 81; Resp 18; Pulse Ox 95% on R/A; tw2 08:24 BP 110 / 40; Pulse 83; Resp 18; Pulse Ox 96% on R/A; tw2 09:15 BP 78 / 50; Pulse 40; Resp 17; Pulse Ox 98% on R/A; tw2 09:56 BP 92 / 38; Pulse 41; Resp 18; Pulse Ox 97% on R/A; tw2 10:48 BP 96 / 32; Pulse 42; Resp 18; Pulse Ox 95% on R/A; tw2 11:30 BP 99 / 34; Pulse 41; Resp 18; Pulse Ox 95% on R/A; tw2 12:18 BP 105 / 29; Pulse 91; Resp 20; Pulse Ox 100% on R/A; ph 12:20 BP 105 / 29; Pulse 90; Resp 21; Pulse Ox 96% on R/A; tw2 13:11 BP 111 / 37; Pulse 88; Resp 22; Pulse Ox 97% on R/A; tw2 03:04 Body Mass Index 31.32 (90.72 kg, 170.18 cm) aa1 12:[address] Norton notified at this time tw2 Eros Coma Score: 13:11 Eye Response: to pain(2). Verbal Response: inappropriate words(3). Motor Response: tw2 localizes pain(5). Total: 10. 14:55 Eye Response: to voice(3). Verbal Response: oriented(5). Motor Response: obeys tw2 commands(6). Total: 14. MDM: 03:01 Patient medically screened. 07:03 Differential diagnosis: coffee-ground material pt on blood thinners. will eval for GI wa bleed. Data reviewed: vital signs, nurses notes, lab test result(s). Test interpretation: by ED physician or midlevel provider: abnml labs noted for Na 132. Cl 95. BUN 34. WBC 5.9. H/H 7.8/22.5. Plt BNP 3923. troponin. elevated at 0.06. 07:07 Test interpretation: by ED physician or midlevel provider: CXR: no acute process. wa 07:07 Test interpretation: by ED physician or midlevel provider: EKG: interp by me: HR 42. wa sinus bradycardia. 1st Deg AV block. diffuse ST-wave changes. Response to treatment: improving. transferred to [facility] due to lack of ICU beds. Physician consultation:. Other consultation: Dr. Ryder. 07:16 Test interpretation: by ED physician or midlevel provider: CXR: fluid overload. wa 15:12 ED course: The patient remained stable in the ED through the morning. The family was kdr concerned that since he was , that their insurance might not cover the cost. Since the patient had recently been to [facility], we attempt to transfer the patient back to that site - they had no ICU beds and declined the transfer. We then attempted to transfer the patient to [facility] and they declined the transfer. The daughter indicated that the insurance company did not know if [facility] was in network. The insurance company then asked us to attempt transfer to [facility]. That facility also declined the transfer. At about this time, the patient had several large melanotic stools and a re-check of her Hgb revealed a decline to 5.9. At that time, I ordered two units of blood and d/w the daughter that we could no longer wait for her insurance company to find a bed, Care had been delayed long enough and we proceeded to transfer the patient to an ICU bed that had been secured prior to 07:00 AM today. Also, due to the abrupt chance in her Hdg, the patient now required Life flight for transfer since an hour ride in a ground ambulance would not be safe for the patient. Though her VS had been relatively stable throughout the day, she was in danger of acute terminal decompensation without immediate emergent air transfer. 07/11 03:09 Order name: Basic Metabolic Panel; Complete Time: 06:58 07/11 03:09 Order name: CBC with Diff; Complete Time: 06:58 07/11 03:09 Order name: Creatinine for Radiology; Complete Time: 04:03 07/11 03:09 Order name: Hepatic Function; Complete Time: 06:59 07/11 03:09 Order name: Lipase; Complete Time: 06:59 07/11 03:10 Order name: Magnesium; Complete Time: 06:59 07/11 03:10 Order name: NT PRO-BNP; Complete Time: 06:59 mi 07/11 03:10 Order name: PT-INR; Complete Time: 04:03 mi 07/11 03:10 Order name: Troponin (emerg Dept Use Only); Complete Time: 06:59 mi 07/11 03:51 Order name: CBC Smear Scan; Complete Time: 06:58 [facility] 07/11 05:25 Order name: Type And Screen mi 07/11 09:05 Order name: ABO/RH no charge; Complete Time: 10:18 [facility] 07/11 12:08 Order name: CBC with Diff; Complete Time: 16:42 [facility] 07/11 03:09 Order name: IV Saline Lock; Complete Time: 03:52 mi 07/11 03:10 Order name: XRAY Chest (1 view); Complete Time: 10:18 mi 07/11 03:10 Order name: EKG; Complete Time: 03:11 mi 07/11 03:51 Order name: CT Abd/Pelvis - Without Contrast; Complete Time: 16:42 mi 07/11 05:35 Order name: Chest Single View XRAY; Complete Time: 10:18 mi 07/11 13:17 Order name: Bb Add On bd 07/11 13:26 Order name: Bb Add On bd 07/11 13:31 Order name: Packed RBCs (Additional Unit) [facility] 07/11 03:09 Order name: Labs collected and sent; Complete Time: 03:30 mi 07/11 03:10 Order name: Cardiac monitoring; Complete Time: 03:52 mi 07/11 03:10 Order name: EKG - Nurse/Tech; Complete Time: 03:52 mi 07/11 03:10 Order name: O2 Per Protocol; Complete Time: 03:30 mi 07/11 03:10 Order name: O2 Sat Monitoring; Complete Time: 03:30 mi 07/11 04:06 Order name: Nasogastric Tube; Complete Time: 05:46 mi Administered Medications: 03:30 Drug: NS 0.9% 500 ml Route: IV; Rate: bolus; Site: right antecubital; cc3 04:15 Follow up: Response: No adverse reaction; IV Status: Completed infusion; IV Intake: cc3 500ml 03:35 Drug: Zofran 4 mg Route: IVP; Site: right antecubital; aa1 04:00 Follow up: Response: No adverse reaction; Nausea is decreased cc3 06:00 Drug: ProTONIX 40 mg Route: IVP; Site: right antecubital; cc3 06:14 Follow up: Response: No adverse reaction cc3 06:05 Drug: ProTONIX 8 mg/hr Route: IV; Rate: 25 ml/hr; Site: right antecubital; cc3 14:55 Follow up: IV Status: Infusion continued upon transfer tw2 09:56 Drug: NS 0.9% 250 ml Route: IV; Rate: bolus; Site: left wrist; tw2 11:15 Follow up: Response: No adverse reaction; IV Status: Completed infusion; IV Intake: tw2 250ml 12:20 Drug: NS 0.9% 1000 ml Route: IV; Rate: 75 ml/hr; Site: left wrist; tw2 14:15 Follow up: IV Status: Order to discontinue infusion tw2 Disposition: 07/11/19 07:12 Transfer ordered to [facility]. Diagnosis are acute GI bleed, CHF. - Reason for transfer: Higher level of care. - Accepting physician is Dr. Ryder. - Condition is Stable. - Problem is new. - Symptoms have improved. Critical care time excluding procedures: 07:13 Critical care time: Bedside Care: 15 minutes, Consultation: 5 minutes, Family wa Intervention: 10 minutes. Total time: 30 minutes Signatures: Dispatcher [employer] EDMaday Hinton RN RN aa1 Sukhdev Norton MD MD kdr Wise, Tara, RN RN tw2 Rosales Mccormick MD MD wa Cordel, Charlene cc3 Corrections: (The following items were deleted from the chart) 07:16 07:12 07/11/2019 07:12 Transfer ordered to [facility]. Diagnosis is mi acute GI bleed. Reason for transfer: Higher level of care. Accepting physician is Dr. Ryder. Condition is Stable. Problem is new. Symptoms have improved. mi 13:32 13:13 PACKED RBC LEUKORED -1+BB.LAB.BRZ ordered. [facility] EDMS 13:32 13:14 ABO/RH typing ordered. [facility] EDMS 13:32 13:14 Antibody Screen ordered. [facility] EDMS 15:18 07:16 07/11/2019 07:12 Transfer ordered to [facility]. Diagnosis is tw2 acute GI bleed; CHF. Reason for transfer: Higher level of care. Accepting physician is Dr. Ryder. Condition is Stable. Problem is new. Symptoms have improved. wa 17:36 15:12 ED course: The patient remained stable in the ED through the morning. The family kdr was concerned that since he was , that their insurance might not cover the cost. kdr
--- NOTE | 2019-07-11 07:48 | RAD REPORT ---
EXAM DESCRIPTION: Salud Single View07/11/2019 7:15 am CLINICAL HISTORY: Abdominal pain COMPARISON: none FINDINGS: A small bilateral pleural effusions are present. The lungs appear clear of acute infiltrate. The heart is normal size
--- NOTE | 2019-07-11 07:50 | RAD REPORT ---
EXAM DESCRIPTION: RAD - Chest Single View - 07/11/2019 7:15 am CLINICAL HISTORY: Device placement NG tube placement IMPRESSION: A nasogastric tube has been inserted well into the stomach Ununited fracture involves the right humeral head
--- NOTE | 2019-07-11 11:54 | RAD REPORT ---
EXAM DESCRIPTION: CT - Abdomen Pelvis Wo Contrast - 07/11/2019 5:54 am CLINICAL HISTORY: Vomiting;Abd pain COMPARISON: None. TECHNIQUE: CT ABDOMEN PELVIS WITHOUT IV CONTRAST on 07/11/2019 3:51 AM [employer] This exam was performed according to our departmental dose-optimization program, which includes autom ated exposure control, adjustment of the mA and/or kV according to patient size and/or use of iterati ve reconstruction technique. FINDINGS: There are [id number] bilateral pleural effusions. There is right upper quadrant asc ites. Abdomen: The liver is normal in appearance. There is no biliary dilatation. Gallbladder is well-seen. The pancreas and spleen are normal in appearance. The adrenal glands and kidneys are unremarkable. Abdominal aorta is normal in course and caliber without aneurysm. There is no free air. There is no r etroperitoneal adenopathy.There is mild diffuse body wall anasarca. Pelvis: There is moderate distal colonic diverticulosis. Urinary bladder contains a small amount of a ir. There is small amount of free pelvic fluid. Uterus is poorly seen. Appendix is not well seen. Skeleton: There are no acute osseous findings. No suspicious bony lesions. IMPRESSION: Fluid overloaded state with pleural effusions, ascites and anasarca. Electronically signed by: Fernando Mars MD 07/11/2019 5:40 AM [employer] Due to temporary technical issues with the PACS/Fluency reporting system, reports are being signed by the in house radiologist as a courtesy to ensure prompt reporting. The interpreting radiologist is f ully responsible for the content of the report.
[2019-07-11] MEDS ORDERED: NA CHLORIDE 0.9% 1,000 ML ONE (12:10)
[2019-07-11 12:26] LABS: Basophils % 0.3 % (0-1.3)
[2019-07-11 12:37] LABS: Hematocrit 16.9 % (36.0-45.0); Lymphocytes % 16.3 % (15.3-44.8); MPV 9.6 fL (7.6-11.3); RBC Red Blood Cell Count 1.58 M/uL (3.86-4.86)
[2019-07-11 15:51] LABS: Anisocytosis 2+; Blood Morphology Comment NOTED (NOT SEEN); Platelet Estimate DECR; Poikilocytosis 1+; Urine White Blood Cell Casts OK
[2019-07-12 02:19] VITALS: TEMP 97
[2019-07-12 02:39] VITALS: BP 111/37; O2SAT 97
== END 2019-07-11 15:18 | disposition short-term general hospital (02) ==
LOC: ER 02:51
PROC: 30233N1 Transfusion of Nonautologous Red Blood Cells into Peripheral Vein, Percutaneous Approach (ICD-10-PCS; principal; 2019-07-11)
DX: K92.2 Gastrointestinal hemorrhage, unspecified (principal); I50.9 Heart failure, unspecified; I10 Essential (primary) hypertension; I25.2 Old myocardial infarction; Z88.6 Allergy status to analgesic agent
CPT/HCPCS: 93005; 85025 ×2; 80048; 36415; 86900; 83735; 86850; 85610; 86901; 80076; 84484; 83690; 83880; 74176; 71045 ×2; 99285; 36430; C9113 ×2; P9016 ×2; J7030 ×4; J7040; J2405